=== PATIENT | female | born 1950 | race Caucasian/White ===

== ENCOUNTER → 2020-04-20 14:01 | Outpatient (CLI) | payer MEDICARE, SELFPAY ==
--- NOTE | ~2020-04-20 | MM_ITS ---
EXAMINATION: MM screening [facility] BI w sana HISTORY: Screening mammogram TECHNIQUE: Craniocaudal and mediolateral oblique 3-D tomosynthesis images were obtained and synthetic 2-D images were generated. CAD analysis was submitted and interpreted. COMPARISON: 04/10/2019, 02/12/2018, 08/10/2017, 11/13/2016 BREAST PARENCHYMAL COMPOSITION: There are scattered areas of fibroglandular density. FINDINGS: There is no evidence of suspicious mass, calcification, or architectural distortion to sugg est malignancy in either breast. There has been no suspicious interval change. IMPRESSION: 1. No mammographic evidence of malignancy. 2. Recommend routine screening mammography in one year. BI-RADS Category 1: Negative Reviewed, dictated and finalized at location A.
== END ==
PROVIDERS: PCP Family Medicine; Visit Provider Nurse Practitioner Family
DX: Z12.31 Encounter for screening mammogram for malignant neoplasm of breast (principal)
CPT/HCPCS: 77063; 77067

== ENCOUNTER → 2021-04-22 10:24 | Outpatient (CLI) | payer MEDICARE, SELFPAY ==
--- NOTE | ~2021-04-22 | MM_ITS ---
EXAMINATION: MM screening [facility] BI w sana HISTORY: Screening TECHNIQUE: Craniocaudal and mediolateral oblique 3-D tomosynthesis images were obtained and synthetic 2-D images were generated. CAD analysis was submitted and interpreted. COMPARISON: Comparison to multiple prior studies sequentially, with oldest reviewed study dated 11/13. BREAST PARENCHYMAL COMPOSITION: There are scattered areas of fibroglandular density. FINDINGS: There is no evidence of suspicious mass, calcification, or architectural distortion to sugg est malignancy in either breast. There has been no suspicious interval change. IMPRESSION: 1. No mammographic evidence of malignancy. 2. Recommend routine screening mammography in one year. BI-RADS Category 1: Negative Reviewed, dictated and finalized at location A.
== END ==
PROVIDERS: PCP Family Medicine; Visit Provider Nurse Practitioner Family
DX: Z12.31 Encounter for screening mammogram for malignant neoplasm of breast (principal)
CPT/HCPCS: 77063; 77067

== ENCOUNTER → 2021-06-09 13:28 | Outpatient (CLI) | payer MEDICARE, SELFPAY ==
--- NOTE | ~2021-06-09 | DEXA_ITS ---
Bone Density Report Name: Mary Catherine Age: 71 Sex: Female Ethnicity: White Date of : 1950 Indication: postmenopausal; screening for osteoporosis; parental hip fracture; height loss; Referring Provider: Negra Phillips Study: Bone densitometry was performed. Exam Date: June 09, 2021 Accession number: [id number] Bone Density: Region BMD T-score Z-score Classification AP Spine (L1-L4) 1.011 -0.3 1.9 Normal Femoral Neck (Left) 0.733 -1.0 0.9 Normal Total Hip (Left) 0.815 -1.0 0.6 Normal Femoral Neck (Right) 0.720 -1.2 0.8 Osteopenia Total Hip (Right) 0.873 -0.6 1.0 Normal Total Hip Mean 0.844 -0.8 0.8 Normal World Health Organization criteria for BMD impression classify patients as: Normal (T-score at or above -1.0), Osteopenia (T-score between -1.0 and -2.5), or Osteoporosis (T-score at or below -2.5). 10-year Fracture Risk(1): Major Osteoporotic Fracture 14% Hip Fracture 3.4% Reported Risk Factors: [place] (), Neck BMD=0.720, BMI=22.6, parental fracture (1) FRAX(R) Version 3.08. Fracture probability calculated for an untreated patient. Fracture probability may be lower if the patient has received treatment. Previous Exams: Region Exam Age BMD T-score BMD Change BMD Change Date g/cm2 vs Baseline vs Previous AP Spine(L1-L4) 06/09/2021 71 1.011 -0.3 -0.036* -0.036* 11/13/2016 66 1.047 0.0 Total Hip(Left) 06/09/2021 71 0.815 -1.0 -0.042* -0.011 04/10/2019 68 0.826 -0.9 -0.030* -0.030* 11/13/2016 66 0.857 -0.7 Total Hip(Right) 06/09/2021 71 0.873 -0.6 -0.028* 0.016 04/10/2019 68 0.856 -0.7 -0.045* -0.045* 11/13/2016 66 0.901 -0.3 *Denotes significance at 95% confidence level, LSC for AP Spine = 0.022 g/cm2, LSC for Total Hip = 0.027 g/cm2 Clinical Information Provided by Patient: Parent has had a hip fracture Has used the following medications: Vitamin D Patient maximum height was 64 Menopause Age: 57 Drinks caffeinated beverages Onset of menses at age 12 Number of children 2 Impression: The patient has low bone mass, based on the Right Femoral Neck T-score. The patient has an estimated ten-year risk of hip fracture of 3.4% and an estimated ten-year risk of major fracture of 14%, based on the WHO FRAX algorithm. The patient has risk factors, including: parental hip fracture. The BMD for the AP
== END ==
PROVIDERS: PCP Family Medicine; Visit Provider Nurse Practitioner Family
DX: Z78.0 Asymptomatic menopausal state (principal); M85.851 Other specified disorders of bone density and structure, right thigh
CPT/HCPCS: 77080

== ENCOUNTER 2021-07-04 00:24 | Day surgery (SDC) | payer MEDICARE, SELFPAY ==
[2021-06-23 15:01] VITALS: BMI 22.2
--- NOTE | 2021-07-03 10:14 | PM.HPGS ---
History of Present Illness History of Present Illness Consent: Risks, benefits, and alternatives have been discussed and questions answered. Patient agrees to proceed with procedure. Chief complaint: hx of colon polyps Narrative: Mary Catherine is a 71 year old female Who was referred for colon cancer screening. 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 Surgical History Surgical History History of hernia repair (~2013) History of tubal ligation Social History Social History Smoking status: Never smoker Alcohol intake: current Drinks per week: 4 Living arrangements: with family Spiritual care concerns: No Meds Home Medications and Allergies Home Medications Medication Instructions Recorded Confirmed Type melatonin 5 mg capsule 5 mg PO HS cap 03/22/20 07/04/21 History propranolol 120 mg capsule,24 120 mg PO DAILY #90 cap 11/12/20 07/04/21 Rx hr,extended release cholecalciferol (vitamin D3) 1,250 1,250 mcg PO WEEKLY #12 tablet 03/29/21 07/04/21 Rx mcg (50,000 unit) tablet Allergies Allergy/AdvReac Type Severity Reaction Status Date / Time No Known Allergies Allergy Unknown Verified 07/04/21 06:16 Exam Const: General: alert Orientation/consciousness: patient oriented x3 Resp: Auscultation: clear to auscultation bilaterally Cardio: Rhythm: regular rhythm GI: GI Palp: Yes Soft to palpation and No Tenderness to palpation present (GI) Neuro: General: patient oriented x3 Assessment and Plan Assessment and plan (1) Colon cancer screening: Code(s): Z12.11 - Encounter for screening for malignant neoplasm of colon Status: Acute Assessment and Plan: Colonoscopy with possible biopsy or polypectomy or cautery or injection of substances.
[2021-07-04 06:10] VITALS: BP 155/75; PULSE 63; RESP 18; TEMP 36.9; O2SAT 99; BMI 21.9
[2021-07-04] MEDS: LACTATED RINGERS 1,000 ML 150 ML IV CONT (06:34)
--- NOTE | 2021-07-04 06:39 | P.PNAN_ITS ---
Anes - Initial Pre Proc Eval Procedure: Operation Date: 07/04/21 07:30 Proposed Procedures p Screening Colonoscopy - Eugenio Gray MD Date/Time: 07/04/21 06:39 Surgeon: Eugenio Gray MD Pre Op Diagnosis: hx of colon polyps Patient Data Age: 71 Gender: F Height: 1.6 m Weight: 56.1 kg Last Vital Signs Temp 36.9 C 07/04/21 06:10 Pulse 63 07/04/21 06:10 Resp 18 07/04/21 06:10 BP 155/75 H 07/04/21 06:10 Pulse Ox 99 07/04/21 06:10 Allergies Allergy/AdvReac Type Severity Reaction Status Date / Time No Known Allergies Allergy Unknown Verified 07/04/21 06:16 Home Medications Medication Instructions Recorded Confirmed Type melatonin 5 mg capsule 5 mg PO HS cap 03/22/20 07/04/21 History propranolol 120 mg capsule,24 120 mg PO DAILY #90 cap 11/12/20 07/04/21 Rx hr,extended release cholecalciferol (vitamin D3) 1,250 1,250 mcg PO WEEKLY #12 tablet 03/29/21 07/04/21 Rx mcg (50,000 unit) tablet Patient hx anesthesia problems: none Family hx anesthesia problems: none Results Review: All pre-operative results and documents have been reviewed as part of the pre-operative evaluation. 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 Surgical History Surgical History History of hernia repair (~2013) History of tubal ligation Social History Social History Smoking status: Never smoker Alcohol intake: current Drinks per week: 4 Living arrangements: with family Spiritual care concerns: No Anes - Eval Final PreProcedure Day of Procedure 07/04/21 06:39 Patient weight: normal Heart: regular rate and rhythm Lungs: clear to auscultation Airway: Mallampati scale class II Neurological: alert and oriented Last oral intake: >/= 8 hours ASA classification: II Emergent: no Anesthetic plan: proceed Anesthesia type and monitoring: general GIVS and standard monitoring Results Review: All pre-operative results and documents have been reviewed as part of the pre-operative evaluation. Informed Consent: The patient's anesthetic plan and its attendant risks and benefits were discussed with the patient/family/POA. Questions were solicited and answers provided to the satisfaction of the patient/family/POA.
[2021-07-04 07:48] VITALS: BP 114/67; PULSE 66; RESP 18; O2SAT 97
[2021-07-04 07:58] VITALS: BP 123/74; PULSE 62; RESP 19; O2SAT 100
[2021-07-04 08:08] VITALS: BP 137/70; PULSE 60; RESP 18; O2SAT 100
== END 2021-07-04 08:18 | disposition home or self-care (01) ==
PROVIDERS: PCP Family Medicine; Visit Provider Internal Medicine Gastroenterology
PROC: 0DJD8ZZ Inspection of Lower Intestinal Tract, Via Natural or Artificial Opening Endoscopic (ICD-10-PCS; CPT 45378; principal; 2021-07-04 07:30)
DX: Z12.11 Encounter for screening for malignant neoplasm of colon (principal); Z86.010 Personal history of colon polyps; F41.9 Anxiety disorder, unspecified; G25.0 Essential tremor; I83.93 Asymptomatic varicose veins of bilateral lower extremities; K57.30 Diverticulosis of large intestine without perforation or abscess without bleeding
CPT/HCPCS: G0105; J2704; J7120

== ENCOUNTER → 2021-10-20 12:23 | Outpatient (CLI) | payer MEDICARE, SELFPAY ==
--- NOTE | ~2021-10-20 | XR_ITS ---
XR chest 2V DATE: 10/20/2021 12:48 INDICATION: Chest pain TECHNIQUE: 2 views COMPARISON: 04/02/2019 2 view chest FINDINGS: Normal heart size. There is aortic calcification and mild unfolding. No hilar or mediastina l enlargement. No pulmonary infiltrate or consolidation, pleural effusion or pulmonary vascular congestion or pneumo thorax. Included skeletal structures are unremarkable other than osteopenia, and degenerative spurrin g of the thoracic spine. IMPRESSION: No active cardiopulmonary disease Reviewed, dictated and finalized at location A.
== END ==
PROVIDERS: PCP Family Medicine; Visit Provider Nurse Practitioner
DX: R07.89 Other chest pain (principal)
CPT/HCPCS: 71046

== ENCOUNTER 2021-10-25 07:22 | Outpatient (CLI) | payer MEDICARE, SELFPAY ==
--- NOTE | ~2021-10-25 | US_ITS ---
EXAMINATION: US carotid duplex BI DATE: 10/25/2021 07:53 INDICATION: Dizziness and giddiness. TECHNIQUE: Grayscale, color Doppler, and pulsed Doppler images of the cervical carotid arteries were obtained. The degree of vessel stenosis is placed in one of the following categories: normal, <50%, 5 0-69%, >=70% but less than near-occlusion, near-occlusion, or total occlusion. Note that percent sten osis relative to normal distal artery lumen diameter is indirectly measured from velocity measurement s as described by Olegario, et al. Radiology 2003; 229:340-346. COMPARISON: None. FINDINGS: RIGHT: The right common carotid artery (CCA) peak systolic velocity (PSV) is 86 cm/s. The right internal car otid artery (ICA) PSV is 95 cm/s. The right ICA end-diastolic velocity (EDV) is 39 cm/s. The right IC A/CCA PSV ratio is 1.1. Grayscale and color Doppler images yield an estimate of <50% diameter reducti on from plaque in the ICA. There is antegrade flow in the right vertebral artery. LEFT: The left CCA PSV is 98 cm/s. The left ICA PSV is 98 cm/s. The left ICA EDV is 28 cm/s. The left ICA/C CA PSV ratio is 1.0. Grayscale and color Doppler images yield an estimate of <50% diameter reduction from plaque in the ICA. There is antegrade flow in the left vertebral artery. IMPRESSION: 1. <50% stenosis in the right internal carotid artery. 2. <50% stenosis in the left internal carotid artery. Reviewed, dictated and finalized at location A.
--- NOTE | 2021-10-25 08:27 | EST_ITS ---
Patient Info Name: Mary Catherine Age: 71 years : 1950 Gender: Female Ht: 64 in Wt: 130 lbs BSA: 1.64 m2 HR: 58 bpm BP: 184 / 77 mmHg Heart Rhythm: Sinus Rhythm Exam Date: 10/25/2021 8:37 AM Exam Location: [facility] Stress Patient Status: Outpatient Admit Date: 10/25/2021 Staff Ordering Physician: Ping Almazan NP Attending Provider: Ping Almazan NP Exercise Technologist: Heidi Wu CT Exercise Physician: Tyree Abel DO Exam Type: CA stress test treadmill Study Info Indications R42 - Dizziness and giddiness R07.9 - Chest pain, unspecified A treadmill exercise stress test was performed. Summary 1. 1. Negative [facility]no exercise stress test for ischemic ST changes by ECG criteria. However, patient achieved only 74% MPHR for age group which reduces sensitivity of the test. 2. 2. Good functional capacity, achieving 7.7 METs of workload. 3. 3. Baseline hypertension. 4. 4. Appropriate HR response to exercise. 5. 5. Appropriate HR recovery at 1 minute post exercise. 6. 6. No imaging with stress testing. 7. 7. Patient informed of the above results. Protocol: [facility] Stress ECG Details Stage: REST Duration (min): 2 min : 53 sec Speed (mph): 0.0 Grade (%): 0 HR (bpm): 58 SBP (mmHg): 184 DBP (mmHg): 77 METS: --- Stage: REST Duration (min): 7 min : 57 sec Speed (mph): 0.0 Grade (%): 0 HR (bpm): 63 SBP (mmHg): 184 DBP (mmHg): 77 METS: --- Stage: STAGE 1 Duration (min): 1 min : 0 sec Speed (mph): 1.7 Grade (%): 10 HR (bpm): 80 SBP (mmHg): 184 DBP (mmHg): 77 METS: --- Stage: STAGE 1 Duration (min): 2 min : 0 sec Speed (mph): 1.7 Grade (%): 10 HR (bpm): 82 SBP (mmHg): 184 DBP (mmHg): 77 METS: --- Stage: STAGE 1 Duration (min): 3 min : 0 sec Speed (mph): 1.7 Grade (%): 10 HR (bpm): 86 SBP (mmHg): 169 DBP (mmHg): 80 METS: --- Stage: STAGE 2 Duration (min): 1 min : 0 sec Speed (mph): 2.5 Grade (%): 12 HR (bpm): 100 SBP (mmHg): 169 DBP (mmHg): 80 METS: --- Stage: STAGE 2 Duration (min): 2 min : 0 sec Speed (mph): 2.5 Grade (%): 12 HR (bpm): 94 SBP (mmHg): 169 DBP (mmHg): 80 METS: --- Stage: STAGE 2 Duration (min): 3 min : 0 sec Speed (mph): 2.5 Grade (%): 12 HR (bpm): 94 SBP (mmHg): 169 DBP (mmHg): 80 METS: --- Stage: STAGE 3 Duration (min): 0 min : 24 sec Speed (mph): 3.4 Grade (%): 14 HR (bpm): 105 SBP (mmHg): 169 DBP (mmHg): 80 METS: --- Stage: RECOVERY Duration (min): 0 min : 35 sec Speed (mph): 0.0 Grade (%): 0 HR (bpm): 87 SBP (mmHg): 185 DBP (mmHg): 78 METS: --- Stage: RECOVERY Duration (min): 1 min : 35 sec Speed (mph): 0.0 Grade (%): 0 HR (bpm): 66 SBP (mmHg): 185 DBP (mmHg): 78 METS: --- Stage: RECOVERY Duration (min): 2 min : 3
== END 2021-10-25 07:23 | disposition home or self-care (01) ==
PROVIDERS: PCP Family Medicine; Visit Provider Nurse Practitioner
DX: R07.89 Other chest pain (principal); R42 Dizziness and giddiness; I65.23 Occlusion and stenosis of bilateral carotid arteries
CPT/HCPCS: 93017; 93880

== ENCOUNTER 2022-05-04 10:09 | Outpatient (RCR) | payer MEDICARE, SELFPAY ==
--- NOTE | 2022-05-04 11:21 | PTOPEVAL1 ---
Assessment and note entered by Reji James, PT Evaluation Information Assessment Status Evaluation Reported Pain Level Pain Score 0: Self Report Assessment PT Clinical Summary Patient is a 71 year old female coming into the clinic with a diagnosis of low back pain. Patient reports she currently has no pain or symptoms. When tested patient shows normal strength, poos tight hamstrings, EVAN piriformis, and hip flexors/ quads. Patient given home exercise program of stretches which she reports she has done before after other bouts of sciatica. Patient has a follow up session three weeks from now if no symptoms develop will discharge otherwise will work on symptoms observed. Plan of Care Interventions Electrical Stimulation,Gait Training,Hot Pack/Cold Pack,Manual Therapy,Mechanical Traction,Neuro Re- education,Patient/Caregiver Educati,Therapeutic Activities,Therapeutic Exercise,Ultrasound PT Services Indicated Yes Treatment Frequency and followup in 3 weeks unless symptoms come back Duration These treatments will address the objective and functional deficits as defined above. The patient will be advanced safely and appropriately in order for the patient to progress towards his/her prior level of function. Additional exercises will be introduced and as well as a comprehensive home exercise program upon discharge, if needed, ?to ensure carryover of functional gains achieved in the clinic. This treatment plan has been reviewed and agreement upon by the patient.
--- NOTE | 2022-06-02 11:33 | PTOPDC ---
Assessment and note entered by Fang Dubois, PT, DPT Evaluation Information Assessment Status Discharge - Pt Not Presen Diagnosis low back pain Subjective Information Pt called today and cancelled her scheduled re- evaluation. She states she is doing well and does not require any further therapy. Assessment PT Clinical Summary Mary completed her initial evaluation on and has been participating in a home exercise program since. She will be discharged at this time . If she requires additional therapy at a later date, she will need a new order. Plan of Care Treatment Frequency and to be discharged Duration
== END 2022-06-02 14:22 | disposition home or self-care (01) ==
LOC: ANHGOSHPT 10:09
PROVIDERS: PCP Family Medicine; Visit Provider Nurse Practitioner Family
DX: M54.50 Low back pain, unspecified (principal)
CPT/HCPCS: 97110; 97161

== ENCOUNTER 2022-06-02 10:23 | Outpatient (CLI) | payer MEDICARE, SELFPAY ==
[2022-06-02 18:19] LABS: Alanine Aminotransferase 17 U/L (6-35); Albumin Level 4.6 g/dL (3.5-5.1); Alkaline Phosphatase 106 U/L (38-126); Anion Gap 10 mmol/L (8-16); Aspartate Amino Transferase 26 U/L (14-36); Bilirubin,Total 0.7 mg/dL (0.2-1.3); Blood Urea Nitrogen 19 mg/dL (7-17); Calcium 9.2 mg/dL (8.4-10.2); Carbon Dioxide 26 mmol/L (22-30); Chloride 100 mmol/L (98-107); Cholesterol 189 mg/dL (0-200); Estimated Glomerular Filt Rate > 60; Glucose 106 mg/dL (65-110); HDL Direct 50 mg/dL; Potassium 4.7 mmol/L (3.4-5.0); Sodium 136 mmol/L (137-145); Triglycerides 129 mg/dL (<150)
[2022-06-02 18:31] LABS: LDL Cholesterol Direct 97 mg/dL
[2022-06-02 18:33] LABS: Basophils Absolute Auto 0.1 K/mm3 (0.0-0.1); Basophils Percent Auto 1.1 % (0.2-1.2); Eosinophils Absolute Auto 0.2 K/mm3 (0-0.3); Eosinophils Percent Auto 3.1 % (0-4.4); Hematocrit 39.7 % (37.0-47.0); Hemoglobin 13.1 g/dL (12.0-15.0); Immature Granulocyte Absolute 0.01 K/mm3 (0.00-0.031); Immature Granulocyte Percent A 0.2 % (0-0.5); Lymphocytes Percent Auto 28.3 % (18.3-44.2); Mean Corpuscular Hemoglobin 31.8 pg (26-34); Mean Corpuscular Volume 96.4 fl (80-100); Mean Platelet Volume 9.4 fl (7.4-10.4); Monocytes Absolute Auto 0.5 K/mm3 (0.1-0.6); Monocytes Percent Auto 8.2 % (2.6-8.5); Neutrophils Absolute Auto 3.8 K/mm3 (1.3-6.7); Neutrophils Percent Auto 59.1 % (45.5-73.1); Platelet Count Result 334 k/mm3 (150-375); Red Blood Count 4.12 M/mm3 (4.2-5.4); Red Cell Distribution Width 12.2 % (11.5-14.5); White Blood Count 6.4 K/mm3 (4.5-10.0)
== END 2022-06-02 10:24 | disposition home or self-care (01) ==
LOC: ANHGOSHLAB 10:26
PROVIDERS: PCP Family Medicine; Visit Provider Nurse Practitioner Family
DX: E55.9 Vitamin D deficiency, unspecified (principal); E78.5 Hyperlipidemia, unspecified
CPT/HCPCS: 36415; 80053; 80061; 82306; 84443; 85025

== ENCOUNTER → 2022-06-30 15:54 | Outpatient (CLI) | payer MEDICARE, SELFPAY ==
--- NOTE | ~2022-06-30 | MM_ITS ---
EXAMINATION: MM screening ivis BI w sana HISTORY: Screening TECHNIQUE: Craniocaudal and mediolateral oblique 3-D tomosynthesis images were obtained and synthetic 2-D images were generated. CAD analysis was submitted and interpreted. COMPARISON: Comparison to multiple prior studies sequentially, with oldest reviewed study dated 11/13. BREAST PARENCHYMAL COMPOSITION: There are scattered areas of fibroglandular density. FINDINGS: There is a new focal asymmetry inferiorly in the right breast on MLO view. The left breast is stable without evidence for malignancy. IMPRESSION: 1. New focal right breast asymmetry inferiorly and posteriorly on MLO view. 2. Additional mammographic views and possible breast ultrasound are recommended. BI-RADS Category 0: Incomplete: Needs additional imaging evaluation. Reviewed, dictated and finalized at location A. WORKER IMPRESSION: 1. New focal right breast asymmetry inferiorly and posteriorly on MLO view. 2. Additional mammographic views and possible breast ultrasound are recommended . BI-RADS Category 0: Incomplete: Needs additional imaging evaluation.
== END ==
PROVIDERS: PCP Family Medicine; Visit Provider Family Medicine
DX: Z12.31 Encounter for screening mammogram for malignant neoplasm of breast (principal); R92.8 Other abnormal and inconclusive findings on diagnostic imaging of breast
CPT/HCPCS: 77063; 77067

== ENCOUNTER → 2022-07-26 09:21 | Outpatient (CLI) | payer MEDICARE, SELFPAY ==
--- NOTE | ~2022-07-26 | MM_ITS ---
EXAMINATION: MM diagnostic ivis RT w sana HISTORY: Left breast asymmetry on screening mammogram TECHNIQUE: Additional 3-D tomosynthesis images of the left breast were performed and synthetic 2-D im ages were generated. CAD analysis was submitted and interpreted. COMPARISON: 06/30/2022, 04/22/2021,04/20/2020 FINDINGS: With spot compression, a 5 mm mass in the posterior third of the left breast has a stable a ppearance when compared to prior examinations. There has been no suspicious interval change. Also not ed is stable 4 mm mass of the upper breast at the 11:00 location. IMPRESSION: 1. No mammographic evidence of malignancy. 2. Recommend routine screening mammography in one year. BI-RADS Category 2: Benign finding(s). Reviewed, dictated and finalized at location A. [employer]
== END ==
PROVIDERS: PCP Family Medicine; Visit Provider Nurse Practitioner Family
DX: R92.8 Other abnormal and inconclusive findings on diagnostic imaging of breast (principal)
CPT/HCPCS: 77061; 77065; G0279

== ENCOUNTER → 2022-07-31 15:29 | Outpatient (CLI) | payer MEDICARE, SELFPAY ==
--- NOTE | ~2022-07-31 | XR_ITS ---
EXAMINATION: XR chest 2V DATE: 07/31/2022 15:43 INDICATION: Cough. TECHNIQUE: Frontal and lateral views of the chest were obtained. COMPARISON: Chest 2 views 10/20/2021 FINDINGS: There is mild scarring at the lung apices. No pleural effusion or pneumothorax. The heart s ize is normal. There is mild chronic anterior wedging of multiple midthoracic vertebral bodies. IMPRESSION: 1. Stable mild scarring at the lung apices. Reviewed, dictated and finalized at location A. [employer] PHP SOFTWARE DEVELOPER
== END ==
PROVIDERS: PCP Nurse Practitioner; Visit Provider Nurse Practitioner
DX: R05.9 Cough, unspecified (principal); J98.4 Other disorders of lung
CPT/HCPCS: 71046

== ENCOUNTER 2023-04-17 11:44 | Outpatient (CLI) | payer MEDICARE, SELFPAY ==
[2023-04-17 18:33] LABS: Basophils Absolute Auto 0.1 K/mm3 (0.0-0.1); Basophils Percent Auto 1.1 % (0.2-1.2); Eosinophils Absolute Auto 0.4 K/mm3 (0-0.3); Eosinophils Percent Auto 6.8 % (0-4.4); Hematocrit 39.5 % (37.0-47.0); Hemoglobin 12.4 g/dL (12.0-15.0); Immature Granulocyte Absolute 0.01 K/mm3 (0.00-0.031); Immature Granulocyte Percent A 0.2 % (0-0.5); Lymphocytes Percent Auto 31.6 % (18.3-44.2); Mean Corpuscular HGB Conc 31.4 g/dl (32-36); Mean Corpuscular Hemoglobin 32.4 pg (26-34); Mean Corpuscular Volume 103.1 fl (80-100); Mean Platelet Volume 10.4 fl (7.4-10.4); Monocytes Absolute Auto 0.5 K/mm3 (0.1-0.6); Monocytes Percent Auto 7.9 % (2.6-8.5); Neutrophils Absolute Auto 3.3 K/mm3 (1.3-6.7); Neutrophils Percent Auto 52.4 % (45.5-73.1); Platelet Count Result 310 k/mm3 (150-375); Red Blood Count 3.83 M/mm3 (4.2-5.4); Red Cell Distribution Width 12.3 % (11.5-14.5); White Blood Count 6.3 K/mm3 (4.5-10.0)
[2023-04-17 18:46] LABS: Alanine Aminotransferase 18 U/L (6-35); Albumin Level 4.2 g/dL (3.5-5.1); Alkaline Phosphatase 73 U/L (38-126); Anion Gap 5 mmol/L (8-16); Aspartate Amino Transferase 40 U/L (14-36); Bilirubin,Total 0.5 mg/dL (0.2-1.3); Blood Urea Nitrogen 16 mg/dL (7-17); Calcium 9.3 mg/dL (8.4-10.2); Carbon Dioxide 32 mmol/L (22-30); Chloride 102 mmol/L (98-107); Cholesterol 201 mg/dL (0-200); Estimated Glomerular Filt Rate > 60; Glucose 82 mg/dL (65-110); HDL Direct 59 mg/dL; Potassium 4.8 mmol/L (3.4-5.0); Sodium 139 mmol/L (137-145); Triglycerides 115 mg/dL (<150)
[2023-04-17 18:58] LABS: LDL Cholesterol Direct 101 mg/dL
[2023-04-20 07:47] LABS: Vitamin D 1,25 (OH)2 Total 44 pg/mL (18-72); Vitamin D2 1,25 (OH)2 <8 pg/mL; Vitamin D3 1,25 (OH)2 44 pg/mL
== END 2023-04-17 11:45 | disposition home or self-care (01) ==
PROVIDERS: PCP Family Medicine; Visit Provider Nurse Practitioner Family
DX: Z12.31 Encounter for screening mammogram for malignant neoplasm of breast (principal); Z78.0 Asymptomatic menopausal state; E55.9 Vitamin D deficiency, unspecified; E78.5 Hyperlipidemia, unspecified
CPT/HCPCS: 36415; 80053; 80061; 82652; 85025

== ENCOUNTER 2023-05-11 00:14 | Day surgery (SDC) | payer MEDICARE, SELFPAY ==
[2023-05-02 12:36] VITALS: BMI 21.3
[2023-05-11 10:36] VITALS: BP 124/72; PULSE 63; RESP 18; TEMP 36.2; O2SAT 100
[2023-05-11] MEDS: LACTATED RINGERS 1,000 ML 150 ML IV CONT (10:44)
--- NOTE | 2023-05-11 10:59 | WPDANESEPPF ---
Anes - Initial Pre Proc Eval Procedure: Operation Date: 05/11/23 11:15 Proposed Procedures p Esophagogastroduodenoscopy - Eugenio Gray MD Date/Time: 05/11/23 10:59 Surgeon: Eugenio Gray MD Pre Op Diagnosis: GERD, Chronic Cough Patient Data Age: 72 Gender: F Height: 1.63 m Weight: 55 kg Last Vital Signs Temp 97.2 F L 05/11/23 10:36 Pulse 63 05/11/23 10:36 Resp 18 05/11/23 10:36 BP 124/72 05/11/23 10:36 Pulse Ox 100 05/11/23 10:36 O2 Del Method Room Air 05/11/23 10:36 Allergies Allergy/AdvReac Type Severity Reaction Status Date / Time No Known Allergies Allergy Unknown Verified 05/11/23 10:35 Home Medications Medication Instructions Recorded Confirmed Type melatonin 5 mg capsule 5 mg PO HS 03/22/20 05/02/23 History propranolol 120 mg capsule,24 120 mg PO DAILY #90 caps 09/20/22 05/02/23 Rx hr,extended release inhalational spacing device #1 ea 12/06/22 12/06/22 Rx albuterol sulfate 90 mcg/actuation 1 puff inhalation Q4H PRN 02/13/23 05/02/23 Rx aerosol inhaler (ProAir HFA) bronchospasm #8.5 grams fluticasone propionate 50 1 spray intranasal DAILY PRN Sinus 04/02/23 05/02/23 History mcg/actuation nasal Symptoms spray,suspension (Flonase Allergy Relief) multivitamin (Daily Multi-Vitamin 1 tablet PO DAILY 04/02/23 05/02/23 History tablet) omeprazole 40 mg capsule,delayed 40 mg PO DAILY #90 caps 04/02/23 05/02/23 Rx release Patient hx anesthesia problems: none Family hx anesthesia problems: none Results Review: All pre-operative results and documents have been reviewed as part of the pre-operative evaluation. [facility] Past Medical History Medical History Anxiety Essential tremor Hip pain, bilateral Insomnia Osteopenia Varicose veins of both lower extremities without ulcer or inflammation Surgical History Surgical History History of hernia repair (~2013) History of tubal ligation Family History Family History Sibling Acute myocardial infarction Other Heart disease Father No problems noted. Mother No problems noted. Social History Social History Smoking status: Never smoker Alcohol intake: current Drinks per week: 4 Alcohol use details: wine Substance use: never Substance use type: does not use Lack of Transportation: No Lack of Food: Never True Current Housing: I Have Housing Concerned About Future Housing: No Difficulty Paying Gas/Electric Bills: No Difficulty Paying for Meds: No Currently Unemployed: No Education: Bachelor's Degree Difficulty w/ Childcare or Family Care: No Living arrangements: with family Occupation/Education: retired Gender identity (if verbalized by the patient): Female Sexual Orientation (if Verbalized by the Patient): Straight or Heterosexual Spiritual care concerns: No Agree to blood products: Yes Anes - Eval Final PreProcedure Day of Procedure 05/11/23 10:59 Patient weight: normal Heart: regular rate and rhythm Lungs: clear to auscultation Airway: Mallampati scale class II Neurological: alert and oriented Last oral intake: >/= 8 hours ASA classification: II Emergent: no Anesthetic plan: proceed Anesthesia type and monitoring: general GIVS and standard monitoring Results Review: All pre-operative results and documents have been reviewed as part of the pre-operative evaluation. Informed Consent: The patient's anesthetic plan and its attendant risks and benefits were discussed with the patient/family/POA. Questions were solicited and answers provided to the satisfaction of the patient/family/POA.
--- NOTE | 2023-05-11 11:15 | PM.HPGS ---
History of Present Illness History of Present Illness Consent: Risks, benefits, and alternatives have been discussed and questions answered. Patient agrees to proceed with procedure. Chief complaint: GERD, Chronic Cough Narrative: Mary Catherine is a 72 year old female Who has been bothered by a chronic and persistent cough since July of this year. She has seen a banquet waiter/waitress and they recommended inhalers but she could not afford them. She has already been taking albuterol before this began. She denies regurgitation. She does not have more episodes at night than during the day. She was started on omeprazole which helped with heartburn that she had had but not at all with the .cough Review of Systems Review of Systems: All systems reviewed & are unremarkable except as noted in HPI and below PMFSH Past Medical History Medical History Anxiety Essential tremor Hip pain, bilateral Insomnia Osteopenia Varicose veins of both lower extremities without ulcer or inflammation Surgical History Surgical History History of hernia repair (~2013) History of tubal ligation Family History Family History Sibling Acute myocardial infarction Other Heart disease Father No problems noted. Mother No problems noted. Social History Social History Smoking status: Never smoker Alcohol intake: current Drinks per week: 4 Alcohol use details: wine Substance use: never Substance use type: does not use Lack of Transportation: No Lack of Food: Never True Current Housing: I Have Housing Concerned About Future Housing: No Difficulty Paying Gas/Electric Bills: No Difficulty Paying for Meds: No Currently Unemployed: No Education: Bachelor's Degree Difficulty w/ Childcare or Family Care: No Living arrangements: with family Occupation/Education: retired Gender identity (if verbalized by the patient): Female Sexual Orientation (if Verbalized by the Patient): Straight or Heterosexual Spiritual care concerns: No Agree to blood products: Yes Meds Home Medications and Allergies Home Medications Medication Instructions Recorded Confirmed Type melatonin 5 mg capsule 5 mg PO HS 03/22/20 05/02/23 History propranolol 120 mg capsule,24 120 mg PO DAILY #90 caps 09/20/22 05/02/23 Rx hr,extended release inhalational spacing device #1 ea 12/06/22 12/06/22 Rx albuterol sulfate 90 mcg/actuation 1 puff inhalation Q4H PRN 02/13/23 05/02/23 Rx aerosol inhaler (ProAir HFA) bronchospasm #8.5 grams fluticasone propionate 50 1 spray intranasal DAILY PRN Sinus 04/02/23 05/02/23 History mcg/actuation nasal Symptoms spray,suspension (Flonase Allergy Relief) multivitamin (Daily Multi-Vitamin 1 tablet PO DAILY 04/02/23 05/02/23 History tablet) omeprazole 40 mg capsule,delayed 40 mg PO DAILY #90 caps 04/02/23 05/02/23 Rx release Allergies Allergy/AdvReac Type Severity Reaction Status Date / Time No Known Allergies Allergy Unknown Verified 05/11/23 10:35 Vital Signs Vital Signs - 24 hr 05/11/23 10:36 Temperature 36.2 C L Pulse Rate 63 Respiratory Rate 18 Blood Pressure 124/72 Pulse Oximetry 100 Oxygen Delivery Room Air Exam Const: General: alert Orientation/consciousness: patient oriented x3 Resp: Auscultation: clear to auscultation bilaterally Cardio: Rhythm: regular rhythm GI: GI Palp: Yes Soft to palpation and No Tenderness to palpation present (GI) Neuro: General: patient oriented x3 Assessment and Plan Assessment and plan (1) Gastroesophageal reflux disease: Qualifiers: Esophagitis presence: esophagitis presence not specified Qualified Code(s): K21.9 - Gastro-esophageal reflux disease wit
[2023-05-11 11:39] VITALS: BP 113/59; PULSE 70; RESP 21; O2SAT 100
[2023-05-11 11:49] VITALS: BP 123/75; PULSE 61; RESP 17; O2SAT 100
[2023-05-11 11:59] VITALS: BP 127/70; PULSE 60; RESP 17; O2SAT 100
== END 2023-05-11 12:00 | disposition home or self-care (01) ==
PROVIDERS: PCP Family Medicine; Visit Provider Internal Medicine Gastroenterology
PROC: 0DJ08ZZ Inspection of Upper Intestinal Tract, Via Natural or Artificial Opening Endoscopic (ICD-10-PCS; CPT 43235; principal; 2023-05-11 11:15)
DX: K21.9 Gastro-esophageal reflux disease without esophagitis (principal); Z79.51 Long term (current) use of inhaled steroids
CPT/HCPCS: 43239; 88305; J2704; J7120

== ENCOUNTER 2023-06-23 08:03 | Emergency (ER) | payer MEDICARE, SELFPAY ==
[2023-06-23 08:18] VITALS: BP 114/67; PULSE 84; RESP 16; TEMP 37.1; O2SAT 100
--- NOTE | 2023-06-23 08:19 | ED.URI ---
HPI - URI/Sore Throat General Chief Complaint: Upper Respiratory Infection Stated Complaint: Sinus Infection Time Seen by Provider: 06/23/23 08:20 Source: patient, RN notes reviewed and old records reviewed Mode of arrival: ambulatory Limitations: no limitations History of Present Illness HPI Narrative: 73-year-old female presents [facility] complaints of body aches, fevers 100-101F, runny nose, loose cough with some fatigue since . patient reports she has had a cough for some time and does have her inhaler at home that she has been using. patient reports she went to lunch with a friend the other day and her friend is also ill. patient has taken Robitussin DM some Elli ,Tylenol, Flonase, and has used the albuterol inhaler for her symptoms. Patient denies any shortness of breath no tachypnea noted, respirations even and nonlabored SaO2 100% MD elicited complaint: fever, cough, rhinorrhea, nasal congestion, sinus pain and other ( fatigue and body aches) Onset (ago): day(s) (2) Pain scale (0-10): 7 Description of mucous: clear Treatments prior to arrival: acetaminophen and other ( Flonase, Robitussin DM, albuterol inhaler, Elli) Related Data Home Medications Medication Instructions Recorded Confirmed melatonin 5 mg capsule 5 mg PO HS 03/22/20 05/02/23 multivitamin (Daily Multi-Vitamin 1 tablet PO DAILY 04/02/23 05/02/23 tablet) finasteride 5 mg tablet mg 06/23/23 spironolactone 100 mg tablet mg 06/23/23 Allergies Allergy/AdvReac Type Severity Reaction Status Date / Time No Known Allergies Allergy Unknown Verified 05/11/23 10:35 Review of Systems Review of Systems: CONSTITUTIONAL: Reports malaise, chills, sweats, and fever. EYES: Denies visual changes, redness, or discharge. ENT: Reports rhinorrhea, congestion, sinus pain, no otalgia and no sore throat. CARDIOVASCULAR: Denies chest pain, palpitations, or edema. RESPIRATORY: Reports cough.? Denies dyspnea. GASTROINTESTINAL: Denies abdominal pain, nausea, vomiting, diarrhea SKIN: Denies rash or itching. MUSCULOSKELETAL: Reports myalgia. NEUROLOGIC: Denies headache. All systems reviewed & are unremarkable except as noted in HPI and below PMFSH Past Medical History Medical History Anxiety Essential tremor Hip pain, bilateral Insomnia Osteopenia Varicose veins of both lower extremities without ulcer or inflammation Surgical History Surgical History History of hernia repair (~2013) History of tubal ligation Family History Family History Sibling Acute myocardial infarction Other Heart disease Father No problems noted. Mother No problems noted. Social History Social History Smoking status: Never smoker Alcohol intake: current Drinks per week: 4 Alcohol use details: wine Substance use: never Substance use type: does not use Lack of Transportation: No Lack of Food: Never True Current Housing: I Have Housing Concerned About Future Housing: No Difficulty Paying Gas/Electric Bills: No Difficulty Paying for Meds: No Currently Unemployed: No Education: Bachelor's Degree Difficulty w/ Childcare or Family Care: No Living arrangements: with family Occupation/Education: retired Gender identity (if verbalized by the patient): Female Sexual Orientation (if Verbalized by the Patient): Straight or Heterosexual Spiritual care concerns: No Agree to blood products: Yes Comments At time of signature, agree with nursing past medical, surgical, social and family history. There is no relevant family history pertinent to the presenting complaint Exam Narrative: GENERAL: Well-appearing, well-nourished, and in no acute distress. HEAD:
== END 2023-06-23 08:53 | disposition home or self-care (01) ==
PROVIDERS: Emergency Provider Registered Nurse; PCP Family Medicine
DX: U07.1 COVID-19 (principal); M85.80 Other specified disorders of bone density and structure, unspecified site
CPT/HCPCS: 87426; 87804; 99213; C9803; G0463

== ENCOUNTER 2023-06-29 18:55 | Emergency (ER) | payer MEDICARE, SELFPAY ==
--- NOTE | 2023-06-29 18:58 | ED.URI ---
HPI - URI/Sore Throat General Chief Complaint: Upper Respiratory Infection Stated Complaint: Covid, shortness of breath/spasms Time Seen by Provider: 06/29/23 19:25 Source: patient and RN notes reviewed Mode of arrival: ambulatory Limitations: no limitations History of Present Illness HPI Narrative: 73-year-old female presents with concern for bronchospasms. She reports she was diagnosed with COVID 6 days ago, at that time she had had symptoms for 2 days. She reports she was given a steroid pack and finished that. She called her doctor today and was prescribed cough medicine with codeine. She reports she is having bronchospasms that make her feel like she can breathe despite using her albuterol inhaler every 4 hours. She reports she has only had the cough medicine for short time today so she is not sure if that has made a difference. She reports she has had a chronic cough for over a year that has worsened with COVID. She reports she has had her chronic cough worked up without any findings. MD elicited complaint: cough Related Data Home Medications Medication Instructions Recorded Confirmed melatonin 5 mg capsule 5 mg PO HS 03/22/20 06/29/23 multivitamin (Daily Multi-Vitamin 1 tablet PO DAILY 04/02/23 06/29/23 tablet) finasteride 5 mg tablet 5 mg DIRECTED 06/23/23 06/29/23 spironolactone 100 mg tablet 100 mg DIRECTED 06/23/23 06/29/23 albuterol sulfate 90 mcg/actuation inhalation 06/29/23 aerosol inhaler Allergies Allergy/AdvReac Type Severity Reaction Status Date / Time No Known Allergies Allergy Unknown Verified 05/11/23 10:35 Review of Systems Review of Systems: CONSTITUTIONAL: Denies malaise, chills, sweats, or fever. EYES: Denies visual changes, redness, or discharge. ENT: Denies rhinorrhea, congestion CARDIOVASCULAR: Denies chest pain, palpitations, or edema. RESPIRATORY: Reports cough, bronchospasm with dyspnea. All systems reviewed & are unremarkable except as noted in HPI and below PMFSH Past Medical History Medical History Anxiety Essential tremor Hip pain, bilateral Insomnia Osteopenia Varicose veins of both lower extremities without ulcer or inflammation Surgical History Surgical History History of hernia repair (~2013) History of tubal ligation Family History Family History Sibling Acute myocardial infarction Other Heart disease Father No problems noted. Mother No problems noted. Social History Social History Smoking status: Never smoker Alcohol intake: current Drinks per week: 4 Alcohol use details: wine Substance use: never Substance use type: does not use Lack of Transportation: No Lack of Food: Never True Current Housing: I Have Housing Concerned About Future Housing: No Difficulty Paying Gas/Electric Bills: No Difficulty Paying for Meds: No Currently Unemployed: No Education: Bachelor's Degree Difficulty w/ Childcare or Family Care: No Living arrangements: with family Occupation/Education: retired Gender identity (if verbalized by the patient): Female Sexual Orientation (if Verbalized by the Patient): Straight or Heterosexual Spiritual care concerns: No Agree to blood products: Yes Comments At time of signature, agree with nursing past medical, surgical, social and family history. There is no relevant family history pertinent to the presenting complaint Exam Narrative: GENERAL: Nontoxic-appearing and in no acute distress. HEAD: Normocephalic EYES: PERRLA, conjunctivae clear ENT: Nares clear. Mucous membranes moist. TM pearly mulligan with sharp light reflex bilaterally; no tragal tenderness. Oropharynx not erythematous without lesions. Tonsils not enlarged and w
[2023-06-29 19:06] VITALS: BP 121/106; PULSE 78; RESP 16; TEMP 36.8; O2SAT 99
[2023-06-29] MEDS: ALBUTEROL SULFATE NEB 2.5 MG/3 ML INH INHALATION (19:29)
[2023-06-29 19:33] VITALS: PULSE 76; RESP 18; O2SAT 99
[2023-06-29 19:48] VITALS: PULSE 77; RESP 18; O2SAT 95
== END 2023-06-29 19:53 | disposition home or self-care (01) ==
PROVIDERS: Emergency Provider Nurse Practitioner; PCP Family Medicine
DX: J98.01 Acute bronchospasm (principal); Z79.899 Other long term (current) drug therapy
CPT/HCPCS: 94640; 99213; G0463

== ENCOUNTER → 2023-09-06 11:31 | Outpatient (CLI) | payer MEDICARE, SELFPAY ==
--- NOTE | ~2023-09-06 | DEXA_ITS ---
Bone Density Report Name: NATHAN STEIN Age: 73 Sex: Female Ethnicity: White Date of : 1950 Indication: postmenopausal; screening for osteoporosis; parental hip fracture; height loss; Referring Provider: RIP VALDEZ Study: Bone densitometry was performed. Exam Date: September 06, 2023 Accession number: [id number] Bone Density: Region BMD T-score Z-score Classification AP Spine (L1-L4) 0.994 -0.5 1.9 Normal Femoral Neck (Left) 0.646 -1.8 0.2 Osteopenia Total Hip (Left) 0.789 -1.3 0.5 Osteopenia Femoral Neck (Right) 0.687 -1.5 0.6 Osteopenia Total Hip (Right) 0.827 -0.9 0.8 Normal Total Hip Mean 0.808 -1.1 0.7 Osteopenia World Health Organization criteria for BMD impression classify patients as: Normal (T-score at or above -1.0), Osteopenia (T-score between -1.0 and -2.5), or Osteoporosis (T-score at or below -2.5). 10-year Fracture Risk(1): Major Osteoporotic Fracture 19% Hip Fracture 9.8% Reported Risk Factors: [place] (), Neck BMD=0.646, BMI=21.1, parental fracture (1) FRAX(R) Version 3.08. Fracture probability calculated for an untreated patient. Fracture probability may be lower if the patient has received treatment. Previous Exams: Region Exam Age BMD T-score BMD Change BMD Change Date g/cm2 vs Baseline vs Previous AP Spine(L1-L4) 09/06/2023 73 0.994 -0.5 -0.053* -0.017 06/09/2021 71 1.011 -0.3 -0.036* -0.036* 11/13/2016 66 1.047 0.0 Total Hip(Left) 09/06/2023 73 0.789 -1.3 -0.067* -0.026 06/09/2021 71 0.815 -1.0 -0.042* -0.011 04/10/2019 68 0.826 -0.9 -0.030* -0.030* 11/13/2016 66 0.857 -0.7 Total Hip(Right) 09/06/2023 73 0.827 -0.9 -0.074* -0.046* 06/09/2021 71 0.873 -0.6 -0.028* 0.016 04/10/2019 68 0.856 -0.7 -0.045* -0.045* 11/13/2016 66 0.901 -0.3 *Denotes significance at 95% confidence level, LSC for AP Spine = 0.022 g/cm2, LSC for Total Hip = 0.027 g/cm2 Clinical Information Provided by Patient: Parent has had a hip fracture Has used the following medications: Vitamin D, MTV Patient maximum height was 64 Menopause Age: 57 Drinks caffeinated beverages Onset of menses at age 12 Number of children 2 Impression: The patient has low bone mass, based on the Left Femoral Neck T-score. The patient has an estimated ten
--- NOTE | ~2023-09-06 | MM_ITS ---
EXAMINATION: MM screening ivis BI w sana HISTORY: Screening mammogram TECHNIQUE: Craniocaudal and mediolateral oblique 3-D tomosynthesis images were obtained and synthetic 2-D images were generated. CAD analysis was submitted and interpreted. COMPARISON: 07/26/2022, 06/30/2022, 04/22/2021 BREAST PARENCHYMAL COMPOSITION: There are scattered areas of fibroglandular density. FINDINGS: A stable mass is noted in the posterior third of the outer right breast. No suspicious mass , calcification, or architectural distortion are identified in either breast to suggest malignancy. T here has been no suspicious interval change. IMPRESSION: 1. No mammographic evidence of malignancy. 2. Recommend routine screening mammography in one year. BI-RADS Category 2: Benign finding(s). Reviewed, dictated and finalized at location A. ECT TECHNICIAN
== END ==
PROVIDERS: PCP Family Medicine; Visit Provider Nurse Practitioner Family
DX: Z12.31 Encounter for screening mammogram for malignant neoplasm of breast (principal); Z78.0 Asymptomatic menopausal state; M85.89 Other specified disorders of bone density and structure, multiple sites
CPT/HCPCS: 77063; 77067; 77080

== ENCOUNTER 2023-10-24 10:48 | Outpatient (CLI) | payer MEDICARE, SELFPAY ==
--- NOTE | ~2023-10-24 | CT_ITS ---
EXAMINATION: CT sinus wo con DATE: 10/24/2023 11:02 INDICATION: Bilateral chronic rhinitis for 6 months TECHNIQUE: Computed tomography (CT) of the paranasal sinuses was performed without contrast. Iterativ e reconstruction technique was employed. Exam dose: 425.50 mGy-cm total exam DLP. COMPARISON: None FINDINGS: There is prominent leftward bowing of the nasal septum. The right maxillary ostium and proximal portion of the right infundibulum are occluded. The left ostiomeatal unit is patent. There is nearly complete opacification of the right maxillary sinus. No right maxillary sinus expansi on wall destruction is noted. The left ostiomeatal unit is normal. The paranasal sinuses otherwise are normally developed and aerated. The mastoid air cells are well-developed and aerated bilaterally. IMPRESSION: Nearly complete opacification right maxillary sinus. Opacified right maxillary ostium an d proximal infundibulum Leftward deviation of nasal septum Reviewed, dictated and finalized at Location [facility]. Reviewed, dictated and finalized at location B. IMPRESSION: Nearly complete opacification right maxillary sinus. Opacified rig ht maxillary ostium and proximal infundibulum Leftward deviation of nasal septum
== END 2023-10-24 10:49 ==
LOC: GOSHIMG 10:49
PROVIDERS: PCP Family Medicine; Visit Provider Otolaryngology
DX: K21.9 Gastro-esophageal reflux disease without esophagitis (principal); J32.2 Chronic ethmoidal sinusitis; J32.0 Chronic maxillary sinusitis; J31.0 Chronic rhinitis; J34.2 Deviated nasal septum
CPT/HCPCS: 70486

== ENCOUNTER 2024-01-07 13:44 | Emergency (ER) | payer MEDICARE, SELFPAY ==
[2024-01-07 13:55] VITALS: BP 122/74; PULSE 65; RESP 18; TEMP 36.5; O2SAT 100
--- NOTE | 2024-01-07 14:04 | ED.URI ---
HPI - URI/Sore Throat General Chief Complaint: Upper Respiratory Infection Stated Complaint: Strep Symptoms Time Seen by Provider: 01/07/24 14:00 Source: patient and RN notes reviewed Mode of arrival: ambulatory Limitations: no limitations History of Present Illness HPI Narrative: Patient presents today with a 3 day history of sore throat, headache, rhinorrhea, cough. Denies fever, congestion. She currently rates her pain 8/10, which increases with talking and swallowing. She has been using ibuprofen and Chloraseptic without relief. Denies known sick contacts. Related Data Home Medications Medication Instructions Recorded Confirmed melatonin 5 mg capsule 5 mg PO HS 03/22/20 01/07/24 multivitamin (Daily Multi-Vitamin 1 tablet PO DAILY 04/02/23 01/07/24 tablet) finasteride 5 mg tablet 5 mg PO DIRECTED HAIR LOSS 06/23/23 01/07/24 spironolactone 100 mg tablet 100 mg PO DIRECTED HAIR LOSS 06/23/23 01/07/24 propranolol 120 mg capsule,24 120 mg PO DAILY TREMORS 12/27/23 01/07/24 hr,extended release Allergies Allergy/AdvReac Type Severity Reaction Status Date / Time No Known Allergies Allergy Unknown Verified 12/27/23 13:22 Review of Systems Review of Systems: CONSTITUTIONAL: Denies body aches, fever, chills, or sweats. EYES: Denies visual changes, redness, or discharge. ENT: Denies congestion, or otalgia.+ rhinorrhea, sore throat CARDIOVASCULAR: Denies chest pain, palpitations, or edema. RESPIRATORY: Denies dyspnea.+ off GASTROINTESTINAL: Denies abdominal pain, nausea, vomiting, or diarrhea. GENITOURINARY: Denies dysuria or hematuria. SKIN: Denies rash, itching, or wounds. MUSCULOSKELETAL: Denies back pain, joint pain, or myalgia. NEUROLOGIC: Denies numbness, tingling, or weakness.+ headache PSYCH: Denies depression or anxiety. [facility] Past Medical History Medical History Anxiety Essential tremor Hip pain, bilateral Insomnia Osteopenia Varicose veins of both lower extremities without ulcer or inflammation Surgical History Surgical History History of hernia repair (~2013) History of tubal ligation Family History Family History Sibling Acute myocardial infarction Other Heart disease Father No problems noted. Mother No problems noted. Social History Social History Social History: Caffeine- coffee daily Smoking status: Never smoker Alcohol intake: current Drinks per week: 4 Alcohol use details: wine Substance use: never Substance use type: does not use Lack of Transportation: No Lack of Food: Never True Current Housing: I Have Housing Concerned About Future Housing: No Difficulty Paying Gas/Electric Bills: No Difficulty Paying for Meds: No Currently Unemployed: No Education: Bachelor's Degree Difficulty w/ Childcare or Family Care: No Living arrangements: with family Occupation/Education: retired Gender identity (if verbalized by the patient): Female Sexual Orientation (if Verbalized by the Patient): Straight or Heterosexual Spiritual care concerns: No Agree to blood products: Yes Comments At time of signature, I have reviewed and agree with nursing past medical, surgical, social and family history unless otherwise noted. Please see nursing chart for further information. There is no relevant family history pertinent to the presenting complaint Exam Narrative: GENERAL: Well-appearing, well-nourished, and in no acute distress. HEAD: Normocephalic, atraumatic. EYES: EOMI. No redness or drainage. Conjunctivae normal. ENT: Mucous membranes pink and moist. Nares clear. No rhinorrhea. TMs normal bilaterally. Throat mildly erythematous without edema or exudate.
== END 2024-01-07 14:15 | disposition home or self-care (01) ==
PROVIDERS: Emergency Provider Nurse Practitioner; PCP Family Medicine
DX: J06.9 Acute upper respiratory infection, unspecified (principal); M85.80 Other specified disorders of bone density and structure, unspecified site
CPT/HCPCS: 87081; 87880; 99213; G0463

== ENCOUNTER 2024-01-08 00:18 | Day surgery (SDC) | payer MEDICARE, SELFPAY ==
--- NOTE | 2023-12-27 13:32 | PC.NURSE ---
Report to the Outpatient Waiting Room, entrance under the green pavilion located off [facility], at time _1:15 PM on date __01/08/24____. Planned Procedure Time: _3:15PM . Time changes happen often and if your time is changed the preop area will call you the afternoon before. - You and your visitor will be asked to self-screen and do not enter if you have any COVID symptoms. - A mask is optional within the hospital at this time. Patients may have clear liquids (water, carbonated beverages, clear teas, apple juice) until 3 hours prior to surgery( 12:15PM) with a maximum of 20 ounces. - No food from midnight until time of surgery - Infants may have breast milk until 4 hours before surgery, infant formula 6 hours prior to surgery. - Children will be allowed to drink immediately following surgery. If applicable, please bring a bottle or sippy cup to assist with drinking. Juice, water, soda, and popsicles are readily available. For infants on formula, please bring formula the day of surgery. Pacifiers are allowed. Take the following medications with a SIP of water the morning of surgery: __PROPRANOLOL DO NOT STOP ANY OF YOUR OTHER PRESCRIPTION MEDICATIONS PRIOR TO SURGERY ?EXCEPT THE FOLLOWING Medications to discontinue per physician ____ALL VITAMINS AND SUPPLEMENTS 3 DAYS PRE OP .LAST DOSE 01/04/24 Please no make-up, nail kenyan, hairspray, perfume, deodorant, or body powder the day of surgery. No jewelry (including any body piercings) or valuables the day of surgery, leave them at home. Please take a shower or bath the night before, or the morning of, surgery with an antibacterial soap. Wear comfortable, loose fitting clothing. Children are encouraged to wear pajamas. - Jewelry must be removed prior to entering the operating room. Rings and piercings that are not removed may be cut off. - The hospital will not accept responsibility for valuables. - Please leave all valuables, including medications, at home the day of surgery. If you are going home after surgery, a licensed haul driver must drive you home. - NO public transportation without another adult if you receive anesthesia. - We recommend that an adult stay with you for 24 hours following discharge. - We also recommend that you do not drive, make important decision, drink alcoholic beverages, or take any drugs that were not prescribed by your health care provider for at least 24 hours after your discharge time. Follow any additional instructions given to you from your surgeon. If you or anyone in your household have experienced Covid symptoms in the past week, please notify your surgeon or the nurse liaison at the phone number below for possible testing. Telephone instructions given to __PATIENT and asked if any additional questions and then verbalized understanding. Patient advised to call surgeon office or pre surgery nurse liaison [phone] if any additional questions.
[2023-12-27 13:39] VITALS: BMI 19.9
[2024-01-08] VITALS (8 sets, daily range): BP systolic 113–124; BP diastolic 50–69; PULSE 61–75; RESP 14–18; TEMP 36.3–36.9; O2SAT 94–100
--- NOTE | 2024-01-08 07:57 | PM.IMHP ---
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 Mother No problems noted. Social History Social History Social History: Caffeine- coffee daily Smoking status: Never smoker Alcohol intake: current Drinks per week: 4 Alcohol use details: wine Substance use: never Substance use type: does not use Lack of Transportation: No Lack of Food: Never True Current Housing: I Have Housing Concerned About Future Housing: No Difficulty Paying Gas/Electric Bills: No Difficulty Paying for Meds: No Currently Unemployed: No Education: Bachelor's Degree Difficulty w/ Childcare or Family Care: No Living arrangements: with family Occupation/Education: retired Gender identity (if verbalized by the patient): Female Sexual Orientation (if Verbalized by the Patient): Straight or Heterosexual Spiritual care concerns: No Agree to blood products: Yes Meds Home Medications and Allergies Home Medications Medication Instructions Recorded Confirmed Type melatonin 5 mg capsule 5 mg PO HS 03/22/20 01/07/24 History multivitamin (Daily Multi-Vitamin 1 tablet PO DAILY 04/02/23 01/07/24 History tablet) finasteride 5 mg tablet 5 mg PO DIRECTED HAIR LOSS 06/23/23 01/07/24 History spironolactone 100 mg tablet 100 mg PO DIRECTED HAIR LOSS 06/23/23 01/07/24 History pantoprazole 40 mg tablet,delayed 40 mg PO BID #180 tabs 12/20/23 01/07/24 Rx release propranolol 120 mg capsule,24 120 mg PO DAILY TREMORS 12/27/23 01/07/24 History hr,extended release Allergies Allergy/AdvReac Type Severity Reaction Status Date / Time No Known Allergies Allergy Unknown Verified 12/27/23 13:22 Exam Narrative: fungal sinusitis Assessment and Plan Assessment and plan (1) Allergic fungal sinusitis: Code(s): J30.89 - Other allergic rhinitis; B49 - Unspecified mycosis Status: Acute Assessment and Plan: plan OR for right-sided endoscopic maxillary antrostomy with tissue removal . Risks discussed including bleeding infection damage to any structures need further procedures change in vision total blindness CSF leak brain brain damage septal perforation failure to resolve symptoms recurrence of fungal balls need for further procedures time-out for time off school inherent risk of narcotic use damage any structures the clavicles by myself damage any structures induction remains of anesthesia including vocal cord paralysis. Postoperative epistaxis. Postoperative action. Patient voiced understanding of these risks and agreed. (2) Opacified maxillary sinus: Code(s): R93.0 - Abnormal findings on diagnostic imaging of skull and head, not elsewhere classified Status: Acute
--- NOTE | 2024-01-08 07:58 | WPDHPUPDATE1 ---
History and Physical Update Update Date/Time: 01/08/24 07:58 History and Physical has been reviewed, including an updated exam of the patient. There are NO changes in the patient's condition. Risks, benefits, and alternatives have been discussed and questions answered. Patient agrees to proceed with procedure.
--- NOTE | 2024-01-08 13:20 | WPDANESEPPF ---
Anes - Initial Pre Proc Eval Procedure: Operation Date: 01/08/24 15:15 Proposed Procedures p Right Sided Endoscopic Maxillary Antrostomy with Tissue Removal - Indio Saeed MD Date/Time: 01/08/24 13:20 Surgeon: Indio Saeed MD Pre Op Diagnosis: Allergic Fungal Sinsusitis Patient Data Age: 73 Gender: F Height: 1.63 m Weight: 52.65 kg Allergies Allergy/AdvReac Type Severity Reaction Status Date / Time No Known Allergies Allergy Unknown Verified 12/27/23 13:22 Home Medications Medication Instructions Recorded Confirmed Type melatonin 5 mg capsule 5 mg PO HS 03/22/20 01/07/24 History multivitamin (Daily Multi-Vitamin 1 tablet PO DAILY 04/02/23 01/07/24 History tablet) finasteride 5 mg tablet 5 mg PO DIRECTED HAIR LOSS 06/23/23 01/07/24 History spironolactone 100 mg tablet 100 mg PO DIRECTED HAIR LOSS 06/23/23 01/07/24 History pantoprazole 40 mg tablet,delayed 40 mg PO BID #180 tabs 12/20/23 01/07/24 Rx release propranolol 120 mg capsule,24 120 mg PO DAILY TREMORS 12/27/23 01/07/24 History hr,extended release Patient hx anesthesia problems: none Family hx anesthesia problems: none Results Review: All pre-operative results and documents have been reviewed as part of the pre-operative evaluation. [facility] Past Medical History Medical History Anxiety Essential tremor Hip pain, bilateral Insomnia Osteopenia Varicose veins of both lower extremities without ulcer or inflammation Surgical History Surgical History History of hernia repair (~2013) History of tubal ligation Family History Family History Sibling Acute myocardial infarction Other Heart disease Father No problems noted. Mother No problems noted. Social History Social History Social History: Caffeine- coffee daily Smoking status: Never smoker Alcohol intake: current Drinks per week: 4 Alcohol use details: wine Substance use: never Substance use type: does not use Lack of Transportation: No Lack of Food: Never True Current Housing: I Have Housing Concerned About Future Housing: No Difficulty Paying Gas/Electric Bills: No Difficulty Paying for Meds: No Currently Unemployed: No Education: Bachelor's Degree Difficulty w/ Childcare or Family Care: No Living arrangements: with family Occupation/Education: retired Gender identity (if verbalized by the patient): Female Sexual Orientation (if Verbalized by the Patient): Straight or Heterosexual Spiritual care concerns: No Agree to blood products: Yes Anes - Eval Final PreProcedure Day of Procedure 01/08/24 13:20 Patient weight: normal Heart: regular rate and rhythm Lungs: clear to auscultation Airway: Mallampati scale class II Neurological: alert and oriented Last oral intake: >/= 8 hours ASA classification: II Emergent: no Anesthetic plan: proceed Anesthesia type and monitoring: general ETT and standard monitoring Results Review: All pre-operative results and documents have been reviewed as part of the pre-operative evaluation. Informed Consent: The patient's anesthetic plan and its attendant risks and benefits were discussed with the patient/family/POA. Questions were solicited and answers provided to the satisfaction of the patient/family/POA.
[2024-01-08] MEDS: LACTATED RINGERS 1,000 ML 30 ML IV CONT ×2 (13:24→15:30)
[2024-01-08] MEDS: ACETAMINOPHEN 500 MG TABLET 1000 MG PO (13:41)
[2024-01-08] MEDS: ceFAZolin 2 GM/D5W 50 ML 2 GM/50 ML BAG IVPB (14:12)
[2024-01-08] MEDS: LIDO 1%/EPINEPHRINE 1:100,000 20 ML VIAL INFILTRATE (14:27)
--- NOTE | 2024-01-08 16:01 | P.OP_ITS ---
Procedure Note - Detailed Date of Procedure 01/08/24 Pre-op Diagnosis Allergic Fungal Sinsusitis Post-op Diagnosis Same Procedure Performed Right-sided endoscopic maxillary antrostomy with tissue removal Surgeon Indio Saeed MD Anesthesia General Indications see above Findings copious amounts of fungal debris took like 30 minutes of irrigating scraping off the anterior wall. Patient tolerated the procedure Description of Procedure patient identified consent verified preop. Patient was taken to the operating room. Time-out performed. General anesthesia induced endotracheal tube secured airway. Patient prepped draped position procedure confirmed. Afrin-soaked pledgets placed for 5 minutes then removed. 0 degree endoscope utilized. Likely septum deviated significantly to the left. This was right-sided procedure. Patient was marked. Double ball tip probe placed for fungal debris was coming out hole was widened maxillary antrostomy widened patient please widest I could go with straight through cutter and backbiter. 70 degree scope was utilized about 30 minutes of irrigation and scraping with frontal sinus curette removed all the fungal debris bleeding about 10 cc. Patient tolerated the procedure well no complications. Bleeding was stable essentially non- existent at the end of the procedure. I performed all dictated portions of procedure patient taken to PACU. Estimated Blood Loss 10 Drains No Packing No Pathology None sent Complications No immediate complications Condition Stable Disposition PACU [facility] Billing Surgery - Charge Forward: Surgery Billing
[2024-01-08] MEDS: oxyCODONE HCL (*CRX) 5 MG TAB IR PO (16:38)
== END 2024-01-08 17:10 | disposition home or self-care (01) ==
PROVIDERS: PCP Family Medicine; Visit Provider Otolaryngology
PROC: (CPT 31267; principal; 2024-01-08 15:15)
DX: J30.89 Other allergic rhinitis (principal); B49 Unspecified mycosis; G25.0 Essential tremor
CPT/HCPCS: 31267; A9270; J0330; J0690; J1100; J2405; J2704; J3010; J7120

== ENCOUNTER 2024-02-26 01:03 | Day surgery (SDC) | payer MEDICARE, SELFPAY ==
[2024-02-22 10:14] VITALS: BMI 19.2
--- NOTE | 2024-02-22 10:20 | PC.NURSE ---
Report to the Outpatient Waiting Room, entrance under the green pavilion located off [facility], at time _0915_ on date _[id number]_. Planned Procedure Time: _1115_. Time changes happen often and if your time is changed the preop area will call you the afternoon before. - You and your visitor will be asked to self-screen and do not enter if you have any COVID symptoms. - A mask is optional within the hospital at this time. Patients may have clear liquids (water, carbonated beverages, clear teas, apple juice) until 3 hours prior to surgery with a maximum of 20 ounces. - No food from midnight until time of surgery Take the following medications with a SIP of water the morning of surgery: ____Propanolol and Flonase DO NOT STOP ANY OF YOUR OTHER PRESCRIPTION MEDICATIONS PRIOR TO SURGERY ?EXCEPT THE FOLLOWING Medications to discontinue per physician None Date to take last dose Please no make-up, nail croatian, hairspray, perfume, deodorant, or body powder the day of surgery. No jewelry (including any body piercings) or valuables the day of surgery, leave them at home. Please take a shower or bath the night before, or the morning of, surgery with an antibacterial soap. Wear comfortable, loose fitting clothing. - Jewelry must be removed prior to entering the operating room. Rings and piercings that are not removed may be cut off. - The hospital will not accept responsibility for valuables. - Please leave all valuables, including medications, at home the day of surgery. If you are going home after surgery, a licensed emt driver must drive you home. - NO public transportation without another adult if you receive anesthesia. - We recommend that an adult stay with you for 24 hours following discharge. - We also recommend that you do not drive, make important decision, drink alcoholic beverages, or take any drugs that were not prescribed by your health care provider for at least 24 hours after your discharge time. Follow any additional instructions given to you from your surgeon. If you or anyone in your household have experienced Covid symptoms in the past week, please notify your surgeon or the nurse liaison at the phone number below for possible testing. Telephone instructions given to _Silvanayanelis__and asked if any additional questions and then verbalized understanding. Patient advised to call surgeon office or pre surgery nurse liaison [phone] if any additional questions.
--- NOTE | 2024-02-25 16:05 | PM.IMHP ---
H&P: HPI History of Present Illness Date/Time: 02/25/24 16:05 Chief Complaint: Allergic fungal sinusitis, chronic sinusitis Narrative: planned procedure Review of Systems Review of Systems: All systems reviewed & are unremarkable except as noted in HPI and below [facility] Past Medical History Medical History Anxiety Essential tremor Hip pain, bilateral Insomnia Osteopenia Varicose veins of both lower extremities without ulcer or inflammation Surgical History Surgical History History of hernia repair (~2013) History of tubal ligation Family History Family History Sibling Acute myocardial infarction Other Heart disease Father No problems noted. Mother No problems noted. Social History Social History Social History: Caffeine- coffee daily Smoking status: Never smoker Alcohol intake: current Drinks per week: 4 Alcohol use details: wine Substance use: never Substance use type: does not use Lack of Transportation: No Lack of Food: Never True Current Housing: I Have Housing Concerned About Future Housing: No Difficulty Paying Gas/Electric Bills: No Difficulty Paying for Meds: No Currently Unemployed: No Education: Bachelor's Degree Difficulty w/ Childcare or Family Care: No Living arrangements: with family Occupation/Education: retired Gender identity (if verbalized by the patient): Female Sexual Orientation (if Verbalized by the Patient): Straight or Heterosexual Spiritual care concerns: No Agree to blood products: Yes Meds Home Medications and Allergies Home Medications Medication Instructions Recorded Confirmed Type melatonin 5 mg capsule 5 mg PO HS 03/22/20 02/22/24 History finasteride 5 mg tablet 5 mg PO DIRECTED HAIR LOSS 06/23/23 02/22/24 History spironolactone 100 mg tablet 100 mg PO DIRECTED HAIR LOSS 06/23/23 02/22/24 History propranolol 120 mg capsule,24 120 mg PO DAILY TREMORS 12/27/23 02/22/24 History hr,extended release omeprazole 40 mg capsule,delayed 40 mg PO DAILY 01/28/24 02/22/24 History release fluticasone propionate 50 1 spray intranasal BID 02/22/24 02/22/24 History mcg/actuation nasal spray,suspension (Flonase Allergy Relief) Allergies Allergy/AdvReac Type Severity Reaction Status Date / Time No Known Allergies Allergy Unknown Verified 02/22/24 10:11 Exam Narrative: right-sided sinus disease Assessment and Plan Assessment and plan (1) Nasal crusting: Code(s): J34.89 - Other specified disorders of nose and nasal sinuses Status: Acute Assessment and Plan: plan OR right-sided revision maxillary antrostomy with tissue removal. As well as nasal endoscopy. Risks discussed bleeding infection failure to resolve symptoms need for referral to academics under postoperative bleeding infection CSF leak brain brain damage change in vision need further procedures will need to perform intraoperative cultures for fungus aerobic and anaerobic. Damage to any structure the clavicle by myself damage to any structure during adduction remains of anesthesia including vocal cord paralysis. (2) Post-operative pain: Code(s): G89.18 - Other acute postprocedural pain Status: Acute
[2024-02-26] VITALS (7 sets, daily range): BP systolic 99–131; BP diastolic 58–72; PULSE 64–85; RESP 10–16; TEMP 36.1–36.3; O2SAT 98–100
--- NOTE | 2024-02-26 07:37 | WPDHPUPDATE1 ---
History and Physical Update Update Date/Time: 02/26/24 07:37 History and Physical has been reviewed, including an updated exam of the patient. There are NO changes in the patient's condition. Risks, benefits, and alternatives have been discussed and questions answered. Patient agrees to proceed with procedure.
--- NOTE | 2024-02-26 10:06 | WPDANESEPPF ---
Anes - Initial Pre Proc Eval Procedure: Operation Date: 02/26/24 11:15 Proposed Procedures p Revision Right Maxillary Antrostomy with Tissue Removal - Indio Saeed MD Date/Time: 02/26/24 10:06 Surgeon: Indio Saeed MD Pre Op Diagnosis: allergic fungal sinusitis Patient Data Age: 73 Gender: F Height: 1.63 m Weight: 50.9 kg Allergies Allergy/AdvReac Type Severity Reaction Status Date / Time No Known Allergies Allergy Unknown Verified 02/22/24 10:11 Home Medications Medication Instructions Recorded Confirmed Type melatonin 5 mg capsule 5 mg PO HS 03/22/20 02/22/24 History finasteride 5 mg tablet 5 mg PO DIRECTED HAIR LOSS 06/23/23 02/22/24 History spironolactone 100 mg tablet 100 mg PO DIRECTED HAIR LOSS 06/23/23 02/22/24 History propranolol 120 mg capsule,24 120 mg PO DAILY TREMORS 12/27/23 02/22/24 History hr,extended release omeprazole 40 mg capsule,delayed 40 mg PO DAILY 01/28/24 02/22/24 History release fluticasone propionate 50 1 spray intranasal BID 02/22/24 02/22/24 History mcg/actuation nasal spray,suspension (Flonase Allergy Relief) Patient hx anesthesia problems: none Family hx anesthesia problems: none Results Review: All pre-operative results and documents have been reviewed as part of the pre-operative evaluation. [facility] Past Medical History Medical History Anxiety Essential tremor Hip pain, bilateral Insomnia Osteopenia Varicose veins of both lower extremities without ulcer or inflammation Surgical History Surgical History History of hernia repair (~2013) History of tubal ligation Family History Family History Sibling Acute myocardial infarction Other Heart disease Father No problems noted. Mother No problems noted. Social History Social History Social History: Caffeine- coffee daily Smoking status: Never smoker Alcohol intake: current Drinks per week: 4 Alcohol use details: wine Substance use: never Substance use type: does not use Lack of Transportation: No Lack of Food: Never True Current Housing: I Have Housing Concerned About Future Housing: No Difficulty Paying Gas/Electric Bills: No Difficulty Paying for Meds: No Currently Unemployed: No Education: Bachelor's Degree Difficulty w/ Childcare or Family Care: No Living arrangements: with family Occupation/Education: retired Gender identity (if verbalized by the patient): Female Sexual Orientation (if Verbalized by the Patient): Straight or Heterosexual Spiritual care concerns: No Agree to blood products: Yes Anes - Eval Final PreProcedure Day of Procedure 02/26/24 10:06 Patient weight: normal Heart: regular rate and rhythm Lungs: clear to auscultation Airway: Mallampati scale class II Neurological: alert and oriented Last oral intake: >/= 8 hours ASA classification: II Emergent: no Anesthetic plan: proceed Anesthesia type and monitoring: general ETT and standard monitoring Results Review: All pre-operative results and documents have been reviewed as part of the pre-operative evaluation. Informed Consent: The patient's anesthetic plan and its attendant risks and benefits were discussed with the patient/family/POA. Questions were solicited and answers provided to the satisfaction of the patient/family/POA.
[2024-02-26] MEDS: LACTATED RINGERS 1,000 ML 30 ML IV CONT ×2 (10:30→11:53)
[2024-02-26] MEDS: ACETAMINOPHEN 500 MG TABLET 1000 MG PO (10:30)
[2024-02-26] MEDS: ceFAZolin 2 GM/D5W 50 ML 2 GM/50 ML BAG IVPB (10:55)
[2024-02-26] MEDS: OXYMETAZOLINE HCL 0.05% NAS 15 ML BTL (*BKC) 1 SPRAY NASAL (11:00)
[2024-02-26] MEDS: LIDO 1%/EPINEPHRINE 1:100,000 50 ML VIAL INFILTRATE (11:02)
[2024-02-26] MEDS: TOBRAMYCIN SULFATE 80 MG/2 ML VIAL 400 MG IRRIGATION (11:24)
--- NOTE | 2024-02-26 11:29 | SUR.OPER ---
Cultures sent with [facility] and received by Dave
--- NOTE | 2024-02-26 13:31 | P.OP_ITS ---
Procedure Note - Detailed Date of Procedure 02/26/24 Pre-op Diagnosis allergic fungal sinusitis Post-op Diagnosis Same Procedure Performed Right-sided revision maxillary antrostomy Surgeon Indio Saeed MD Anesthesia General Indications see above Findings copious amounts of what appeared to be purulence and fungal debris in the right maxillary sinus. There widened a little bit further open but is still open quite a bit. Minimal bleeding. Patient tolerated the procedure well Description of Procedure patient identified consent verified preop. Patient brought operating. Time- out performed. General anesthesia induced endotracheal tube secured. Patient prepped draped position procedure confirmed 2nd time-out performed. Afrin- soaked pledgets placed in the right side for 5 minutes then removed. 0 degree scope utilized copious amounts of debris removed in totality debris was sectioned in half half sent for fungal cultures have sent for aerobic anaerobic. It appeared to be fungal with purulence. Wound copiously washed out with tobramycin infused saline. Patient tolerated the procedure well no complications blood loss 5 cc. I performed all dictated portions procedure care the patient given Anesthesiology patient taken to PACU. Estimated Blood Loss 5 Drains No Packing No Pathology None sent Complications No immediate complications Condition Stable Disposition PACU [facility] Billing Surgery - Charge Forward: Surgery Billing
== END 2024-02-26 13:29 | disposition home or self-care (01) ==
PROVIDERS: PCP Family Medicine; Visit Provider Otolaryngology
PROC: (CPT 31256; principal; 2024-02-26 11:15)
DX: J30.89 Other allergic rhinitis (principal); B48.8 Other specified mycoses
CPT/HCPCS: 31256; 87070; 87077; 87102; 87107; 87186; 87205; 87206; A9270; J0330; J0690; J1100; J1596; J2371; J2405; J2704; J3010; J3260; J7050; J7120

== ENCOUNTER 2024-04-14 12:36 | Outpatient (CLI) | payer MEDICARE, SELFPAY ==
[2024-04-14 14:50] LABS: Basophils Absolute Auto 0.1 K/mm3 (0.0-0.1); Basophils Percent Auto 0.8 % (0.2-1.2); Eosinophils Absolute Auto 0.2 K/mm3 (0-0.3); Eosinophils Percent Auto 2.4 % (0-4.4); Hematocrit 40.7 % (37.0-47.0); Hemoglobin 13.3 g/dL (12.0-15.0); Immature Granulocyte Absolute 0.02 K/mm3 (0.00-0.031); Immature Granulocyte Percent A 0.3 % (0-0.5); Lymphocytes Absolute Auto 1.93 K/mm3 (0.9-3.2); Lymphocytes Percent Auto 30.5 % (18.3-44.2); Mean Corpuscular HGB Conc 32.7 g/dl (32-36); Mean Corpuscular Hemoglobin 33.2 pg (26-34); Mean Corpuscular Volume 101.5 fl (80-100); Mean Platelet Volume 9.6 fl (7.4-10.4); Monocytes Absolute Auto 0.5 K/mm3 (0.1-0.6); Monocytes Percent Auto 7.9 % (2.6-8.5); Neutrophils Absolute Auto 3.7 K/mm3 (1.3-6.7); Neutrophils Percent Auto 58.1 % (45.5-73.1); Platelet Count Result 327 k/mm3 (150-375); Red Blood Count 4.01 M/mm3 (4.2-5.4); Red Cell Distribution Width 12.6 % (11.5-14.5); White Blood Count 6.3 K/mm3 (4.5-10.0)
[2024-04-14 14:58] LABS: Alanine Aminotransferase 11 U/L (6-35); Albumin Level 4.6 g/dL (3.5-5.1); Anion Gap 8 mmol/L (4-12); Aspartate Amino Transferase 35 U/L (14-36); Bilirubin,Total 0.5 mg/dL (0.2-1.3); Blood Urea Nitrogen 19 mg/dL (7-17); Calcium 9.4 mg/dL (8.4-10.2); Carbon Dioxide 30 mmol/L (22-30); Chloride 94 mmol/L (98-107); Estimated Glomerular Filt Rate > 60; Glucose 115 mg/dL (65-110); Potassium 4.5 mmol/L (3.4-5.0); Sodium 132 mmol/L (137-145)
[2024-04-14 14:59] LABS: Alkaline Phosphatase 87 U/L (38-126); Cholesterol 209 mg/dL (0-200); HDL Direct 65 mg/dL; Triglycerides 171 mg/dL (<150)
[2024-04-14 15:09] LABS: LDL Cholesterol Direct 99 mg/dL
[2024-04-14 15:24] LABS: Vitamin D 25 Hydroxy 69.1 ng/mL
[2024-04-15 10:35] LABS: Hemoglobin A1C 5.5 % (<5.7)
== END 2024-04-14 12:37 | disposition home or self-care (01) ==
LOC: ANHGOSHLAB 12:37
PROVIDERS: PCP Family Medicine; Visit Provider Nurse Practitioner Family
DX: E78.5 Hyperlipidemia, unspecified (principal); G25.0 Essential tremor; E55.9 Vitamin D deficiency, unspecified; R73.9 Hyperglycemia, unspecified
CPT/HCPCS: 36415; 80053; 80061; 82306; 83036; 84443; 85025

== ENCOUNTER 2024-09-08 10:46 | Outpatient (CLI) | payer MEDICARE, SELFPAY ==
--- NOTE | ~2024-09-08 | MM_ITS ---
EXAMINATION: MM screening ivis BI w sana HISTORY: Screening TECHNIQUE: Craniocaudal and mediolateral oblique 3-D tomosynthesis images were obtained and synthetic 2-D images were generated. CAD analysis was submitted and interpreted. COMPARISON: Comparison to multiple prior studies sequentially, with oldest reviewed study dated 04/10. BREAST PARENCHYMAL COMPOSITION: Not dense: There are scattered areas of fibroglandular density. FINDINGS: There is no evidence of suspicious mass, calcification, or architectural distortion to sugg est malignancy in either breast. There has been no suspicious interval change. IMPRESSION: 1. No mammographic evidence of malignancy. 2. Recommend routine screening mammography in one year. BI-RADS Category 1: Negative Reviewed, dictated and finalized at location B. [employer]
== END 2024-09-08 10:47 | disposition home or self-care (01) ==
LOC: MICIMG 10:47
PROVIDERS: PCP Family Medicine; Visit Provider Family Medicine
DX: Z12.31 Encounter for screening mammogram for malignant neoplasm of breast (principal)
CPT/HCPCS: 77063; 77067

== ENCOUNTER 2024-10-14 13:07 | Outpatient (CLI) | payer MEDICARE, SELFPAY ==
--- OUTSIDE RECORDS SUMMARY | 2024-10-14 15:10 | XMS_ITS | Clinical Summary ---
Author Organization [facility] Address [address] [place] [address] Care Team Providers Care Silk Screen Processor Name Role Phone Arlette Maya MD Primary Care Provider Source Comments [facility],non-owned Affiliates and Associated Physician Practices is amultiple site organization consisting of ambulatory clinics and hospital sitesin [place], [place], [place] and [place]. This disclosure is being madepursuant to the Care Everywhere program and may not contain all information available regarding this patient. Last updated 18.[facility] Allergies No known active allergies Medications * Be aware that medications may not be up to date on this document. Alwaysverify current medications with the patient. Medication Sig Dispensed Refills Start Date End Date Status finasteride (Proscar) 5 MG tablet Take 1 (one) tablet by mouth once daily Active fluconazole (Diflucan) 150 MG tablet Take 1 (one) tablet by mouth once 02/29/2024 Active fluticasone propionate (Flonase) 50 MCG/ACT nasal spray [place] 2 (two) sprays into each nostril once daily as needed 02/26/2024 Active melatonin 5 MG capsule Take 1 (one) capsule by mouth at bedtime Active omeprazole (PriLOSEC) 40 MG capsule Take 1 (one) capsule by mouth once daily 04/09/2024 Active propranolol ER 24hr (Inderal LA) 120 MG capsule Take 1 (one) capsule by mouth once daily 04/26/2024 Active spironolactone (Aldactone) 100 MG tablet Take 1 (one) tablet by mouth once daily Active Active Problems Problem Noted Date Diagnosed Date Chronic maxillary sinusitis 05/14/2024 Fungal sinusitis 05/14/2024 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 Flat. Unchanged from last visit. See Dr. Pearce in 6 months. 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 Encounters Date Type Department Care Team Description 09/19/2024 Travel 09/17/2024 Telephone [facility] - ENT [address] [place] [phone] Wood Camargo MD Appointment from Last 3 Months Immunizations Name Administration Dates Next Due INFLUENZA VACCINE, HIGH-DOSE , QUADR. (FLUZONE HIGH-DOSE QUADRIVALENT; 65Y+), 0.7 ML (HD-IIV4) 04/26/2018 Social History Tobacco Use Types Packs/Day Years Used Date Smoking Tobacco: Never Smokeless Tobacco: Never Alcohol Use Standard Drinks/Week Comments Yes 0 (1 standard drink = 0.6 oz pur e alcohol) occ Sex and Gender Information Value Date Recorded Sex Assigned at Not on file Gender Identity Not on file Sexual Orientation Not on file Last Filed Vital Signs Vital Sign Reading Time Taken Comments Blood Pressure 142/85 05/14/2024 8:43 AM CDT Pulse 65 05/14/2024 8:43 AM CDT Temperature - - Respiratory Rate - - Oxygen Saturation - - Inhaled Oxygen Concentration - - Weight 50.3 kg (111 lb) 05/14/2024 8:43 AM CDT Height 162.6 cm (5' 4 ) 05/14/2024 8:43 AM CDT Body Mass Index 19.05 05/14/2024 8:43 AM CDT Plan of Treatment Upcoming Encounters Date Type Department Care Team (Late st Contact Info) Description 10/29/2024 1:45 PM CDT Office Visit [facility] - ENT [address] [place] [address] [phone] Wood Camargo MD [address] [place] [address] [place] [address] Health Maintenance Due Date Last Done Comments BONE DENSITY TESTING 1950 COLOGUARD (AGES 45-75) - COL ON CA SCREENING 1949 COLON MONITORING 1949 COLONOSCOPY - COLON CA SCREENING 1949 CT COLONOGRAPHY - COLON CA SCREENING 1949 Colorectal Cancer Screening 1949 FIT - COLON CA SCREENING 1949 FLEX SIG - COLON CA SCREENING 1949 LIPID TESTING 1949 MAMMOGRAM 1950 MEDICARE AWV 12 MONTHS 1949 HEPATITIS C SCREENING 05/17/1967 DTAP/TDAP/TD VACCINES (1 - Tdap) 1968 PNEUMOCOCCAL VACCINE 50+ (1 of 1 - PCV) 1999 ZOSTER VACCINE (1 of 2) 1999 COVID-19 VACCINE ( - 2023-2 5 season) 2024 INFLUENZA VACCINE (#1) 2024 04/26/2018 Respiratory Syncytial Virus (RSV) Vaccine Pt: or over 60 yrs (1 - 1-dose 75+ series) 2024 DEPRESSION SCREENING 07/23/2024 HEPATITIS B VACCINE Aged Out No longe r eligible based on patient's age to complete this topic HIB VACCINE Aged Out No longer eligi ble based on patient's age to complete this topic HPV VACCINE Aged Out No longer eligi ble based on patient's age to complete this topic MENINGOCOCCAL (Group B) VACC INE SHARED DECISION-MAKING Aged Out No longer eligibl e based on patient's age to complete this topic MENINGOCOCCAL GROUPS A/C/Y/W VACCINE Aged Out No longer eligible b ased on patient's age to complete this topic Care Teams Silk Screen Processor Relationship Specialty Start Date End Date Arlette Maya MD [facility] [place] [address] PCP - General Family Medicine 05/14/24
--- OUTSIDE RECORDS SUMMARY | 2024-10-14 15:11 | XMS_ITS | Referral Summary ---
Author Organization [facility] [place] Address [address] [place] [address] Care Team Providers Care Service Station Operator Name Role Phone No, Physician Primary Care Provider [phone] Allergies No known active allergies Medications propranolol LA (INDERAL LA) 120 mg 24 hr capsule 8 Active melatonin 5 mg capsule Take by mouth. Activ e albuterol HFA (PROVENTIL HFA,VENTOLIN HFA,PROAIR HFA) 90 mcg/actuation inhaler INHALE 1 PUFF BY MOUTH EVERY 4 HOURS NEEDED FOR BRONCHOSPASM 3 Active finasteride (PROSCAR) 5 mg tablet Take 1 tablet (5 mg total) by mouth daily 3 Active omeprazole (PriLOSEC) 20 mg capsule 3 Active spironolactone (ALDACTONE) 100 mg tablet Take 1 tablet (100 mg total) by mouth daily 3 Active benzonatate (TESSALON) 200 mg capsuleIndicati ons:Chronic cough Take 1 capsule (200 mg total) by mouth 3 (three) times a day as needed for cough 30 capsule 3 Active Active Problems Problem Noted Date Diagnosed Date Pseudophakia of both eyes 03/07/2018 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 Flat. Unchanged from last visit. See Dr. Pearce in 6 months. Social History Tobacco Use Types Packs/Day Years Used Date Smoking Tobacco: Never Smokeless Tobacco: Never Personal Safety Answer Date Recorded Getting School Help Needed Not on file 10/06 Comments Unknown Sex and Gender Information Value Date Recorded Sex Assigned at Not on file Legal Sex Female 8:53 AM CDT Gender Identity Not on file Sexual Orientation Not on file Last Filed Vital Signs Vital Sign Reading Time Taken Comments Blood Pressure 158/80 03/25/2023 6:48 PM CDT Pulse 68 03/25/2023 6:48 PM CDT Temperature 36.8 C (98.2 F) 03/25/2023 6:48 PM CDT Respiratory Rate 20 03/25/2023 6:48 PM CDT Oxygen Saturation 97% 03/25/2023 6:48 PM CDT Inhaled Oxygen Concentration - - Weight 56.7 kg (125 lb) 03/25/2023 6:48 PM CDT Height 162.6 cm (5' 4 ) 03/25/2023 6:48 PM CDT Body Mass Index 21.46 03/25/2023 6:48 PM CDT Plan of Treatment Not on file Insurance MEDICARE COMMERCIAL GENERIC MEDICARE COMMERCIAL GENERIC AETNA Care Teams Service Station Operator Relationship Specialty Start Date End Date No, Physician PCP - General 01/24/18
--- OUTSIDE RECORDS SUMMARY | 2024-10-14 15:11 | XMS_ITS | Clinical Summary ---
Author Organization [facility] Main [place] Address [address] [place] [address] Care Team Providers Care Claims Adjuster Name Role Phone No, Physician Primary Care Provider [phone] Allergies No known active allergies Medications propranolol [...] visit. See Dr. Pearce in 6 months. Surgical History Surgery Date Site/Laterality Comments CATARACT EXTRACTION W/ INTRA OCULAR LENS IMPLANT Approx 2013 Bilateral ([facility]) Medical History Medical History Date Comments Has a tremor Of Lower Face & Uper Left Arm Social History Tobacco Use Types Packs/Day Years Used Date Smoking Tobacco: Never Smokeless Tobacco: Never Personal Safety Answer Date Recorded Getting School Help Needed Not on file 10/06 Comments Unknown Sex and Gender Information Value Date Recorded Sex Assigned at Not on file Legal Sex Female 8:53 AM CDT Gender Identity Not on file Sexual Orientation Not on file Obstetrics History Last Filed Vital Signs Vital Sign Reading [...] 03/25/2023 6:48 PM CDT Plan of Treatment Health Maintenance Due Date Last Done Comments Colon Cancer Screening-Colonoscopy 1949 Depression Screening 1949 Fall Risk Assessment 1949 Hepatitis C Screening 1949 Osteoporosis Screening-Bone Density Scan 1949 DTaP/Tdap/Td Vaccine (1 - Tdap) 1960 Hepatitis B Screening 1967 Zoster Vaccine (1 of 2) 1999 Well Visit 65+ 2014 Covid-19 Vaccine (2023-2 5 season) 2024 05/22/2022, 10/27/2021, 05/23/2021, Additional history exists Influenza Vaccine (#1) 2024 , 06/08/2021, 05/11/2020, Additional history exists Pneumococcal vaccine 65+ Completed 02/18/2020, 12/22 Insurance MEDICARE COMMERCIAL GENERIC MEDICARE COMMERCIAL GENERIC AET Care Teams Claims Adjuster Relationship Specialty Start Date End Date No, Physician PCP - General 01/24/18
[2024-10-14 19:44] LABS: Alanine Aminotransferase 14 U/L (6-35); Albumin Level 4.5 g/dL (3.5-5.1); Alkaline Phosphatase 98 U/L (38-126); Anion Gap 9 mmol/L (4-12); Aspartate Amino Transferase 57 U/L (14-36); Bilirubin,Total 0.5 mg/dL (0.2-1.3); Blood Urea Nitrogen 21 mg/dL (7-17); Calcium 9.2 mg/dL (8.4-10.2); Carbon Dioxide 29 mmol/L (22-30); Chloride 99 mmol/L (98-107); Cholesterol 174 mg/dL (0-200); Estimated Glomerular Filt Rate 58; Glucose 85 mg/dL (65-110); HDL Direct 48 mg/dL; Potassium 5.3 mmol/L (3.4-5.0); Sodium 137 mmol/L (137-145); Triglycerides 172 mg/dL (<150)
[2024-10-14 19:55] LABS: LDL Cholesterol Direct 80 mg/dL
[2024-10-14 20:09] LABS: Basophils Absolute Auto 0.1 K/mm3 (0.0-0.1); Basophils Percent Auto 1.2 % (0.2-1.2); Eosinophils Absolute Auto 0.3 K/mm3 (0-0.3); Eosinophils Percent Auto 3.8 % (0-4.4); Hematocrit 39.9 % (37.0-47.0); Hemoglobin 12.8 g/dL (12.0-15.0); Immature Granulocyte Absolute 0.01 K/mm3 (0.00-0.031); Immature Granulocyte Percent A 0.1 % (0-0.5); Lymphocytes Absolute Auto 2.12 K/mm3 (0.9-3.2); Lymphocytes Percent Auto 28.1 % (18.3-44.2); Mean Corpuscular HGB Conc 32.1 g/dl (32-36); Mean Corpuscular Hemoglobin 32.6 pg (26-34); Mean Corpuscular Volume 101.5 fl (80-100); Mean Platelet Volume 9.7 fl (7.4-10.4); Monocytes Absolute Auto 0.6 K/mm3 (0.1-0.6); Monocytes Percent Auto 7.5 % (2.6-8.5); Neutrophils Absolute Auto 4.5 K/mm3 (1.3-6.7); Neutrophils Percent Auto 59.3 % (45.5-73.1); Platelet Count Result 377 k/mm3 (150-375); Red Blood Count 3.93 M/mm3 (4.2-5.4); Red Cell Distribution Width 11.9 % (11.5-14.5); White Blood Count 7.6 K/mm3 (4.5-10.0)
[2024-10-14 20:12] LABS: Hemoglobin A1C 5.4 % (<5.7)
== END 2024-10-14 13:08 | disposition home or self-care (01) ==
LOC: ANHGOSHLAB 13:08
PROVIDERS: PCP Family Medicine; Visit Provider Nurse Practitioner Family
DX: E78.5 Hyperlipidemia, unspecified (principal); I10 Essential (primary) hypertension; R73.01 Impaired fasting glucose
CPT/HCPCS: 36415; 80053; 80061; 83036; 85025

== ENCOUNTER 2024-10-24 13:51 | Outpatient (CLI) | payer MEDICARE, SELFPAY ==
--- OUTSIDE RECORDS SUMMARY | 2024-10-24 13:53 | XMS_ITS | Clinical Summary ---
Author Organization [facility] Address [address] [place] [address] Care Team Providers Care Automation Test Engineer Name Role Phone Arlette Maya MD Primary Care Provider Source Comments [facility],non-owned Affiliates and Associated Physician Practices is amultiple site organization consisting of ambulatory clinics and hospital sitesin [place], [place], [place] and [place]. This disclosure is being madepursuant to the Care Everywhere program and may not contain all information available regarding this patient. Last updated 18.[facility] [employer] Allergies No known active allergies Medications * [...] fluticasone propionate (Flonase) 50 MCG/ACT nasal spray [place] 2 (two) sprays into each nostril once [...] Care Team Description 09/19/2024 Travel 09/17/2024 Telephone [facility] - ENT [address] [place] [phone] Wood Camargo MD Appointment from Last 3 [...] Description 10/29/2024 1:45 PM CDT Office Visit [facility] - ENT [address] [place] [phone] Wood Camargo MD [address] [place] [address] [place] [address] Health Maintenance Due Date Last Done Comments [...] VACCINE ( - 2023-2 5 season) 2024 Respiratory Syncytial Virus (RSV) Vaccine Pt: or over 60 yrs (1 - 1-dose 75+ series) 2024 DEPRESSION SCREENING 07/23/2024 INFLUENZA VACCINE (Season Ended) 2025 04/26/20 18 HEPATITIS B VACCINE Aged Out No longe [...] age to complete this topic Care Teams Automation Test Engineer Relationship Specialty Start Date End Date Arlette Maya MD [facility] [place] [address] PCP - General Family Medicine 05/14/24
--- OUTSIDE RECORDS SUMMARY | 2024-10-24 13:53 | XMS_ITS | Clinical Summary ---
Author Organization [facility] Address [facility] [place] [address] Care Team Providers Care Senior Teradata Developer Name Role Phone Arlette Maya MD Primary Care Provider Allergies No known active allergies Medications DIALYVITE VITAMIN D3 MAX 1.25 MG (99806 UT) Tab Take 1 tablet by mouth once a week. 06/01/2021 Active propranolol LA 120 MG 24 hr capsule Take 120 mg by mouth daily. 08/29/2021 Active Melatonin 5 MG Cap Active famotidine (PEPCID) 20 MG tablet Take 20 mg by mouth daily. 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 Flat. Unchanged from last visit. See Dr. Pearce in 6 months. 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 Social History Tobacco Use Types Packs/Day Years Used Date Smoking Tobacco: Never Smokeless Tobacco: Never Tobacco Cessation:Counseling Given: No Alcohol Use Standard Drinks/Week Comments Yes 0 (1 standard drink = 0.6 oz pur e alcohol) 4 drinks per week Comments Unknown Sex and Gender Information Value Date Recorded Sex Assigned at Not on file Legal Sex Female 7:52 AM CUSTOMER SERVICE SPECIALIST Gender Identity Not on file Sexual Orientation Not on file Last Filed Vital Signs Vital Sign Reading Time Taken Comments Blood Pressure 144/83 02/24/2022 9:51 AM CDT Pulse 60 02/24/2022 9:51 AM CDT Temperature 36.8 C (98.3 F) 02/24/2022 9:51 AM CDT Respiratory Rate 18 11/03/2021 10:41 AM CDT Oxygen Saturation 100% 02/24/2022 9:51 AM CDT Inhaled Oxygen Concentration - - Weight 57.4 kg (126 lb 9.6 oz) 02/24/2022 9:51 A M CDT Height 162.6 cm (5' 4 ) 02/24/2022 9:51 AM CDT Body Mass Index 21.73 02/24/2022 9:51 AM CDT Plan of Treatment Health Maintenance Due Date Last Done Comments Colorectal Cancer Screening Colonoscopy (10 Years) 1949 Hepatitis C 1967 DTaP, Tdap and Td Vaccines (1 - Tdap) 1968 Zoster Vaccines (1 of 2) 1999 Annual Medicare Wellness Visit 2014 Dexa Scan (General) 2014 COVID-19 Vaccine ( season) 2024 10/27/2021, 05/23/2021, 10/02/2020, Additional history exists RSV Immunization or 60+ Years (1 - 1-dose 75+ series) 2024 Pneumococcal Vaccine: 65+ Years Completed 02/18/2020, 01/13/2019 Meningococcal B Vaccine Aged Out No l onger eligible based on patient's age to complete this topic Meningococcal Vaccine Aged Out No vega surekha eligible based on patient's age to complete this topic RSV Immunizations Under 20 Months Aged Out No longer eligible based on patient's age to complete this topic Insurance MEDICARE AETNA Care Teams Senior Teradata Developer Relationship Specialty Start Date End Date Arlette Maya MD [address] [place] [address] PCP - General FAMILY PRACTICE 11/03/21
--- OUTSIDE RECORDS SUMMARY | 2024-10-24 13:53 | XMS_ITS | Referral Summary ---
Author Organization [facility] Main [place] Address [address] [place] [address] Care Team Providers Care Cobbler Mckay Name Role Phone No, Physician Primary Care Provider [phone] Allergies No known active allergies Medications propranolol [...] GENERIC MEDICARE COMMERCIAL GENERIC AETNA Care Teams Cobbler Mckay Relationship Specialty Start Date End Date No, Physician PCP - General 01/24/18
--- OUTSIDE RECORDS SUMMARY | 2024-10-24 13:53 | XMS_ITS | Clinical Summary ---
Author Organization [facility] Main [place] Address [address] [place] [address] Care Team Providers Care Boarding Kennel Or Cattery Operator Name Role Phone No, Physician Primary Care Provider [phone] Allergies No known active allergies Medications propranolol [...] GENERIC MEDICARE COMMERCIAL GENERIC AET Care Teams Boarding Kennel Or Cattery Operator Relationship Specialty Start Date End Date No, Physician PCP - General 01/24/18
[2024-10-24 18:27] LABS: Alanine Aminotransferase 13 U/L (6-35); Albumin Level 4.5 g/dL (3.5-5.1); Alkaline Phosphatase 105 U/L (38-126); Anion Gap 9 mmol/L (4-12); Aspartate Amino Transferase 33 U/L (14-36); Bilirubin,Total 0.5 mg/dL (0.2-1.3); Blood Urea Nitrogen 21 mg/dL (7-17); Calcium 9.4 mg/dL (8.4-10.2); Carbon Dioxide 29 mmol/L (22-30); Chloride 98 mmol/L (98-107); Estimated Glomerular Filt Rate 60; Glucose 101 mg/dL (65-110); Sodium 136 mmol/L (137-145)
== END 2024-10-24 13:52 | disposition home or self-care (01) ==
LOC: ANHGOSHLAB 13:52
PROVIDERS: PCP Family Medicine; Visit Provider Nurse Practitioner Family
DX: E87.5 Hyperkalemia (principal)
CPT/HCPCS: 36415; 80053

== ENCOUNTER 2024-11-10 15:18 | Outpatient (CLI) | payer MEDICARE, SELFPAY ==
--- NOTE | 2024-11-10 15:36 | ECG_ITS ---
Test Date: 2024-11-10 15:50:50 Measurements Intervals [place] Rate: 62 P: 54 UT: 167 QRS: -4 QRSD: 79 T: 46 QT: 400 QTc: 409 Interpretive Statements SINUS RHYTHM POSSIBLE RIGHT VENTRICULAR CONDUCTION DELAY BORDERLINE ECG No previous ECG available for comparison Electronically Signed On 11-10-2024 15:53:45 CDT by Tyree Abel D.O.
--- OUTSIDE RECORDS SUMMARY | 2024-11-10 17:19 | XMS_ITS | Clinical Summary ---
Author Organization [facility] Address [address] [place] [address] Care Team Providers Care Mucking Machine Operator Name Role Phone Arlette Maya MD Primary Care Provider Source Comments [facility],non-owned Affiliates and Associated Physician Practices is amultiple site organization consisting of ambulatory clinics and hospital sitesin [place], [place], [place] and [place]. This disclosure is being madepursuant to the Care Everywhere program and may not contain all information available regarding this patient. Last updated 18.[facility] Allergies No known active allergies Medications * Be aware that medications may not be up to date on this document. Alwaysverify current medications with the patient. finasteride (Proscar) 5 MG tablet Take 1 (one) tablet by mouth once daily Active fluconazole (Diflucan) 150 MG tablet Take 1 (one) tablet by mouth once 02/29/2024 Active fluticasone propionate (Flonase) 50 MCG/ACT nasal spray [place] 2 (two) sprays into each nostril once [...] (one) tablet by mouth once daily Active ketoconazole (Nizoral) 2 % shampoo Apply to affected area once daily 08/21/2024 Active Active Problems Problem Noted Date Diagnosed [...] Encounters Date Type Department Care Team Description 10/29/2024 1:45 PM CDT Office Visit [facility] - ENT [address] [place] [phone] Wood Camargo MD Chronic maxillary sinusitis (Primary Dx); Fungal sinusitis 10/29/2024 Travel 09/19/2024 Travel 09/17/2024 Telephone [facility] - ENT [address] [place] [phone] Wood Camargo MD Appointment from Last 3 Months Immunizations Immunization Administration Dates Next Due COVID MODERNA BIVALENT 12Y+ 50MCG/0.5ML 05/22/2022 COVID PFIZER 12+YR 30MCG/0.3mL 05/23/2024,2022 Covid Moderna primary monova lent 12+ yr 0.5mL 10/27/2021,05/23/2021,10/02/2020,2020 INFLUENZA VACCINE, ADJUVANTE D, QUADR. (FLUAD QUADRIVALENT; 65Y+) (AIIV4) 05/20/2023,05/29/2022,06/08/2021 INFLUENZA VACCINE, ADJUVANTE D, TRIV. (FLUAD TRIVALENT; 65Y+) (AIIV3) 05/26/2019 INFLUENZA VACCINE, HIGH-DOSE , QUADR. (FLUZONE HIGH-DOSE QUADRIVALENT; 65Y+), 0.7 ML (HD-IIV4) 05/11/2020,04/26/2018 INFLUENZA VACCINE, HIGH-DOSE , TRIV. (FLUZONE HIGH-DOSE TRIVALENT; 65Y+) (HD-IIV3) 04/14/2024,05/19/2017 INFLUENZA VACCINE, TRIV. (FL UZONE; FLULAVAL; FLUARIX; AFLURIA TRIVALENT; 6MO+), 0.5 ML (IIV3) 05/13/2015 PNEUMOCOCCAL PPV VACCINE 02/18/2020 Pneumococcal Pcv13 Conj 01/13/2019 RSV ABRYSVO PREG OR 60y+ 0.5mL 06/06/2023 Zoster Hzv Vacc Recombinant Inj Im 08/08/2023, Social History Tobacco Use Types Packs/Day Years Used Date Smoking Tobacco: Never Smokeless Tobacco: Never Alcohol Use Standard Drinks/Week Comments Yes 0 (1 standard drink = 0.6 oz pur e alcohol) occ Comments Unknown Sex and Gender Information Value Date Recorded Sex Assigned at Not on file Legal Sex Female 10:49 AM CDT Gender Identity Not on file Sexual Orientation Not on file Last Filed Vital Signs Vital Sign Reading Time Taken Comments Blood Pressure 154/86 10/29/2024 1:14 PM CDT Pulse 58 10/29/2024 1:14 PM CDT Temperature - - Respiratory Rate - - Oxygen Saturation - - Inhaled Oxygen Concentration - - Weight 52 kg (114 lb 9.6 oz) 10/29/2024 1:14 PM CDT Height 162.6 cm (5' 4 ) 10/29/2024 1:14 PM CDT Body Mass Index 19.67 10/29/2024 1:14 PM CDT Plan of Treatment Upcoming Encounters Date Type Department Care Team (Late st Contact Info) Description 11/19/2024 1:30 PM CDT Office Visit [facility] - ENT [address] [place] [phone] Wood Camargo MD [address] [place] [address] [place] [address] Health Maintenance Due Date Last Done Comments BONE DENSITY TESTING 1949 COLOGUARD (AGES 45-75) - COLON CA SCREENING 1949 COLON MONITORING 1949 COLONOSCOPY - COLON CA SCREENING 1949 CT COLONOGRAPHY - COLON CA SCREENING 1949 Colorectal Cancer Screening 1949 FIT - COLON CA SCREENING 1949 FLEX SIG - COLON CA SCREENING 1949 LIPID TESTING 1949 MAMMOGRAM 1949 MEDICARE AWV 12 MONTHS 1949 HEPATITIS C SCREENING 05/17/1967 DTAP/TDAP/TD VACCINES (1 - Tdap) 1968 DEPRESSION SCREENING 07/23/2024 COVID-19 VACCINE ( season) 2024 05/23/2024, 05/20/2023, 05/22/2022, Additional history exists PNEUMOCOCCAL VACCINE 50+ Completed 02/18/2020, 12/22 Respiratory Syncytial Virus (RSV) Vaccine Pt: or over 60 yrs Completed 06/06/2023 ZOSTER VACCINE Completed 08/08/2023, 06/06/2023 INFLUENZA VACCINE Completed 04/14/2024, , 05/29/2022, Additional history exists HEPATITIS B VACCINE Aged Out No longe r eligible based on patient's age to complete this topic HIB VACCINE Aged Out No longer eligi ble based on patient's age to complete this topic HPV VACCINE Aged Out No longer eligi ble based on patient's age to complete this topic MENINGOCOCCAL (Group B) VACCINE SHARED DECISION-MAKING Aged Out No longer eligible based on patient's age to complete this topic MENINGOCOCCAL GROUPS A/C/Y/W VACCINE Aged Out No longer eligible based on patient's age to complete this topic Procedures Procedure Name Priority Date/Time Associated Diagnosis Comments MA ENDO NASAL SINUS BX POLYP DEBRID RT SIDE Routine 10/29/2024 2:32 PM CDT Chronic maxillary sinusitis Fungal sinusitis from Last 3 Months Results * MA ENDO NASAL SINUS BX POLYP DEBRID RT SIDE (10/29/2024 2:32 PM CDT) Narrative Wood Camargo MD - 10/29/2024 2:32 PM CDT Wood Camargo MD 10/29/2024 2:35 PM Procedure: Nasal Endoscopy With Debridement Anesthesia: Bilateral Nasal Cavity sprayed with Lidocaine and Phenylephrine Detail: Rigid nasal endoscopy was performed in right nasal cavity. We visualized the entire septum as well as the inferior turbinate, middle turbinate, superior turbinate and sphenoethmoid recess. We also visualized the nasopharynx. Unless mentioned below, these structures were normal. In the right maxillary sinus there is a large crust. I used a curved suction to remove this from her nasal cavity. We were then able to further visualize into the maxillary sinus and there is a large amount of purulent thick mucus. I removed is much as possible but I could not remove at all. Posteriorly and inferiorly you were able to see the mucosa which is irritated. Superior mucosa has improved since last visit. EBL: minimal us Wood Camargo MD PROCEDURE/MINOR SURGICAL OR DERABLES Final Result from Last [address] [place] [address] MEDICARE [facility] MEDICARE Care Teams Mucking Machine Operator Relationship Specialty Start Date End Date Arlette Maya MD [address] [facility] [address] [address] PCP - General Family Medicine 05/14/24
--- OUTSIDE RECORDS SUMMARY | 2024-11-10 17:19 | XMS_ITS | Clinical Summary ---
Author Organization [facility] Main [place] Address [address] [place] [address] Care Team Providers Care Clinical Appeals Specialist Name Role Phone No, Physician Primary Care Provider [phone] Allergies No known active allergies Medications propranolol [...] GENERIC MEDICARE COMMERCIAL GENERIC AET Care Teams Clinical Appeals Specialist Relationship Specialty Start Date End Date No, Physician PCP - General 01/24/18
--- OUTSIDE RECORDS SUMMARY | 2024-11-10 17:19 | XMS_ITS | Clinical Summary ---
Author Organization [facility] Address [facility] [place] [address] Care Team Providers Care Resourcing Consultant Name Role Phone Arlette Maya MD Primary Care Provider Allergies No known active allergies Medications DIALYVITE VITAMIN D3 MAX 1.25 MG (37832 UT) Tab Take 1 tablet by mouth [...] on file Legal Sex Female 7:52 AM LOAN COUNSELOR Gender Identity Not on file Sexual Orientation [...] - 1-dose 75+ series) 2024 Pneumococcal Vaccine: 50+ Years Completed 02/18/2020, 01/13/2019 Meningococcal B Vaccine Aged Out No l onger eligible based on patient's age to complete this topic Meningococcal Vaccine Aged Out No vega surekha eligible based on patient's age to complete this topic RSV Immunizations Under 20 Months Aged Out No longer eligible based on patient's age to complete this topic Insurance MEDICARE AETNA Care Teams Resourcing Consultant Relationship Specialty Start Date End Date Arlette Maya MD [address] [place] [address] PCP - General FAMILY PRACTICE 11/03/21
--- OUTSIDE RECORDS SUMMARY | 2024-11-10 17:19 | XMS_ITS | Referral Summary ---
Author Organization [facility] Main [place] Address [address] [place] [address] Care Team Providers Care Apprentice/Lineman Name Role Phone No, Physician Primary Care Provider Allergies No known active allergies Medications propranolol [...] GENERIC MEDICARE COMMERCIAL GENERIC AETNA Care Teams Apprentice/Lineman Relationship Specialty Start Date End Date No, Physician PCP - General 01/24/18
== END 2024-11-10 15:19 | disposition home or self-care (01) ==
PROVIDERS: PCP Family Medicine; Visit Provider Nurse Practitioner Family
DX: Z01.818 Encounter for other preprocedural examination (principal); R94.31 Abnormal electrocardiogram [ECG] [EKG]
CPT/HCPCS: 93005

== ENCOUNTER 2025-04-13 15:17 | Outpatient (CLI) | payer MEDICARE, SELFPAY ==
--- OUTSIDE RECORDS SUMMARY | 2025-04-13 15:24 | XMS_ITS | Encounter Summary ---
Author Organization [facility] Address [address] [facility] [place] [address] Care Team Providers Care Trimming Caser Name Role Phone Arlette Maya MD Primary Care Provider Encounter Details Date Type Department Care Team (Late Contact Info) Description 11/14/2024 Lab Requisition [facility] - Pathology Lab [address] [place] [phone] Wood Camargo MD [address] [place] [place] [address] [place] [address] Illness, unspecified Social History Tobacco Use Types Packs/Day Years Used Date Smoking Tobacco: Never Smokeless Tobacco: Never Alcohol Use Standard Drinks/Week Comments Yes 0 (1 standard drink = 0.6 oz pur e alcohol) occ Comments Unknown Sex and Gender Information Value Date Recorded Sex Assigned at Not on file Legal Sex Female 10:49 AM CDT Gender Identity Not on file Sexual Orientation Not on file documented as of this encounter Plan of Treatment Upcoming Encounters Date Type Department Care Team (Late Contact Info) Description 06/24/2025 12:45 PM HOG COOLER Office Visit [facility] - ENT [address] [place] [phone] Wood Camargo MD [address] [place] [place] [address] [place] [address] documented as of this encounter Procedures Procedure Name Priority Date/Time Associated Diagnosis Comments PATHOLOGY TISSUE Routine 11/13/2024 10:0 0 AM CDT Illness, unspecified documented in this encounter Results * PATHOLOGY TISSUE (11/13/2024 10:00 AM CDT) Case Report Surgical Pathology Report Case: [id number] Authorizing Provider: Wood Camargo MD Collected: 11/13/2024 10:00 AM Ordering Location: [facility] - Received: 11/14/2024 11:38 AM Pathology Lab Pathologist: Quin Dobson MD Specimen: Sinus, 1. sinus contents 11/20/2024 10:14 PM CDT [facility] Final Diagnosis Sinus contents, removal: - Fragments of sinonasal mucosa with moderate to severe chronic inflammation and eosinophilic mucin - Scant unremarkable bone fragments - GMS stain is negative for fungal organisms - Negative for malignancy 11/20/2024 10:14 PM CDT [facility] at 2214 CDT Microscopic Description and Comment No marked eosinophilic infiltrate is noted. 11/20/2024 10:14 PM CDT [facility] Clinical History The patient is a 74 year old female with history of sinus issues and persistent nasal discharges. 11/20/2024 10:14 PM CDT [facility] Gross Description The requisition and specimen(s) are identified with the patient's name, Mary Catherine. Received in formalin, specimen A, 1 sinus contents is a 5.0 x 4.5 x 1.5 cm aggregate of roberts-pink tissue fragments and red-brown clot, representatively submitted in cassette A1. -IKD The remaining specimen is submitted in cassettes [id number]./WALTER 11/20/2024 10:14 PM CDT [facility] Pathologist Location at [facility] 11/20/2024 10:14 PM CDT [facility] Disclaimer The performance characteristics of all immunohistochemical and indirect immunofluorescence stains (if any) cited in this report were determined by the Histopathology Laboratory of [facility]. Some of these tests were developed by our own laboratory and have not been cleared or approved by the US Food and Drug Administration. The FDA does not require this test to go through premarket FDA review. These tests are used for clinical purposes. They should not be regarded as investigational or for research. This laboratory is certified under the Clinical Laboratory Improvement Amendments (CLIA) as qualified to perform high complexity clinical laboratory testing. This case has been personally reviewed and interpreted by the attending (teaching) pathologist. 11/20/2024 10:14 PM CDT [facility] Embedded Images 11/20/2024 10:14 PM CDT [facility] Pathology/Cytolo gy SINUS / Unknown 11/13/2024 10:00 AM CDT 11/14/2024 11:38 AM CDT Wood Camargo MD LAB - PATHOLOGY/CYTOLOGY OR DERABLES Final Result [facility] [address] [phone] documented in this encounter Visit Diagnoses Diagnosis Illness, unspecified documented in this encounter Additional Health Concerns Infection Onset Date Last Indicated Resolved Time ESBL GNR 11/13/2024 11/13/2024 11/24/2024 9:38 AM CDT ESBL Hx Comment:Sinus 11/13/2024 11/24/2024 documented as of this encounter Care Teams Trimming Caser Relationship Specialty Start Date End Date Arlette Maya MD [address] [place] [address] PCP - General Family Medicine 05/14/24 documented as of this encounter
--- OUTSIDE RECORDS SUMMARY | 2025-04-13 15:24 | XMS_ITS | Clinical Summary ---
Author Organization [facility] Address [address] [place] [address] Care Team Providers Care Crossing Flagman Name Role Phone Areltte Maya MD Primary Care Provider Allergies No known active allergies Medications DIALYVITE VITAMIN D3 MAX 1.25 MG (13215 UT) Tab Take 1 tablet by mouth [...] on file Legal Sex Female 7:52 AM AGENTS' RECORDS CLERK Gender Identity Not on file Sexual Orientation [...] A M CDT Height 162.6 cm (5' 4) 02/24/2022 9:51 AM CDT Body Mass Index 21.73 02/24/2022 9:51 AM CDT Plan of Treatment Health Maintenance Due Date Last Done Comments Colorectal Cancer Screening Colonoscopy (10 Years) 1949 Hepatitis C 1967 DTaP, Tdap and Td Vaccines (1 - Tdap) 1968 Zoster Vaccines (1 of 2) 1999 Annual Medicare Wellness Visit 2014 Dexa Scan (General) 2014 RSV Immunization or 60+ Years (1 - 1-dose 75+ series) 2024 COVID-19 Vaccine ( season) 2025 10/27/2021, 05/23/2021, 10/02/2020, Additional history exists Pneumococcal Vaccine: 50+ Years Completed 02/18/2020, 01/13/2019 Meningococcal B Vaccine Aged Out No l onger eligible based on patient's age to complete this topic Meningococcal Vaccine Aged Out No vega surekha eligible based on patient's age to complete this topic RSV Immunizations Under 20 Months Aged Out No longer eligible based on patient's age to complete this topic Insurance MEDICARE AETNA Care Teams Crossing Flagman Relationship Specialty Start Date End Date Arlette Maya MD [address] [place] [address] PCP - General FAMILY PRACTICE 11/03/21
--- OUTSIDE RECORDS SUMMARY | 2025-04-13 15:24 | XMS_ITS | Clinical Summary ---
Author Organization [facility] Main [place] Address [address] [place] [address] Care Team Providers Care Pattern Perforating Machine Operator Name Role Phone No, Physician Primary Care Provider [phone] Allergies No known active allergies Medications propranolol [...] 6:48 PM CDT Height 162.6 cm (5' 4) 03/25/2023 6:48 PM CDT Body Mass Index [...] 1999 Well Visit 65+ 2014 Covid-19 Vaccine (2024-2 6 season) 2025 05/22/2022, 10/27/2021, 05/23/2021, Additional history exists Influenza Vaccine (#1) 2025 , 06/08/2021, 05/11/2020, Additional history exists Pneumococcal vaccine 65+ Completed 02/18/2020, 12/22 Insurance MEDICARE COMMERCIAL GENERIC MEDICARE COMMERCIAL GENERIC AET Care Teams Pattern Perforating Machine Operator Relationship Specialty Start Date End Date No, Physician PCP - General 01/24/18
--- OUTSIDE RECORDS SUMMARY | 2025-04-13 15:24 | XMS_ITS | Clinical Summary ---
Author Organization [facility] Address [address] [facility] [place] [address] Care Team Providers Care Nail Galvanizer Name Role Phone Arlette Maya MD Primary Care Provider Source Comments [facility],non-owned Affiliates and Associated Physician Practices is amultiple site organization consisting of ambulatory clinics and hospital sitesin [place], [place], [place]. This disclosure is being madepursuant to the Care Everywhere program and may not contain all information available regarding this patient. Last updated 18.[employer] [facility] Allergies No known active allergies Medications * Be aware that medications may not be up to date on this document. Alwaysverify current medications with the patient. finasteride (Proscar) 5 MG tablet Take 1 (one) tablet by mouth once daily Active fluconazole (Diflucan) 150 MG tablet Take 1 (one) tablet by mouth once 4 Active fluticasone propionate (Flonase) 50 MCG/ACT nasal spray [place] 2 (two) sprays into each nostril once daily as needed 4 Active melatonin 5 MG capsule Take 1 (one) capsule by mouth at bedtime Active omeprazole (PriLOSEC) 40 MG capsule Take 1 (one) capsule by mouth once daily 4 Active propranolol ER 24hr (Inderal LA) 120 MG capsule Take 1 (one) capsule by mouth once daily 4 Active spironolactone (Aldactone) 100 MG tablet Take 1 (one) tablet by mouth once daily Active ketoconazole (Nizoral) 2 % shampoo Apply to affected area once daily 5 Active ipratropium (Atrovent) 0.06 % nasal spray USE 2 SPRAYS IN EACH NOSTRIL THREE TIMES DAILY 15 mL 5 5 Active ipratropium (Atrovent) 0.06 % nasal spray [place] 2 (two) sprays into each nostril 3 times daily 15 mL 5 5 025 Discontinued Active Problems Problem Noted Date Diagnosed Date Vasomotor rhinitis 12/24/2024 Chronic maxillary sinusitis 05/14/2024 Fungal sinusitis 05/14/2024 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 Flat. Unchanged from last visit. See Dr. Pearce in 6 months. 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 Encounters Date Type Department Care Team Description 04/10/2025 Refill [facility] - ENT [address] [place] [phone] Wood Camargo MD Refill Request from Last 3 Months Immunizations Immunization Administration [...] Sign Reading Time Taken Comments Blood Pressure 134/77 12/24/2024 1:33 PM CDT Pulse 70 12/24/2024 1:33 PM CDT Temperature - - Respiratory Rate - - Oxygen Saturation - - Inhaled Oxygen Concentration - - Weight 49 kg (108 lb) 12/24/2024 1:33 PM CDT Height 162.6 cm (5' 4) 12/24/2024 1:33 PM CDT Body Mass Index 18.54 12/24/2024 1:33 PM CDT Plan of Treatment Upcoming Encounters Date Type Department Care Team (Late st Contact Info) Description 06/24/2025 12:45 PM HYDRAULICS ENGINEER Office Visit [facility] - ENT [facility] [facility], [place] [phone] Wood Camargo MD [facility] [place] [address] Health Maintenance Due Date Last Done Comments [...] DEPRESSION SCREENING 07/23/2024 COVID-19 VACCINE ( season) 2025 05/23/2024, 05/20/2023, 05/22/2022, Additional history exists INFLUENZA VACCINE (#1) 2025 , 05/20/2023, 05/29/2022, Additional history exists PNEUMOCOCCAL VACCINE 50+ Completed 02/18/2020, 12/22 Respiratory Syncytial Virus (RSV) Vaccine Pt: or over 60 yrs Completed 06/06/2023 ZOSTER VACCINE Completed 08/08/2023, 06/06/2023 HEPATITIS B VACCINE Aged Out No longe [...] on patient's age to complete this topic Additional Health Concerns Infection Onset Date Last Indicated ESBL Hx Comment:Sinus 11/13/2024 11/24/2024 Insurance MEDICARE AETNA MEDICARE Care Teams Nail Galvanizer Relationship Specialty Start Date End Date Arlette Maya MD [facility] [facility] [address] [place] [id number] PCP - General Family Medicine 05/14/24
[2025-04-13 19:13] LABS: Alanine Aminotransferase 13 U/L (6-35); Albumin Level 4.4 g/dL (3.5-5.1); Alkaline Phosphatase 92 U/L (38-126); Anion Gap 6 mmol/L (4-12); Aspartate Amino Transferase 34 U/L (14-36); Bilirubin,Total 0.3 mg/dL (0.2-1.3); Blood Urea Nitrogen 23 mg/dL (7-17); Calcium 9.4 mg/dL (8.4-10.2); Carbon Dioxide 29 mmol/L (22-30); Chloride 98 mmol/L (98-107); Estimated Glomerular Filt Rate 43; Glucose 102 mg/dL (65-110); Potassium 5.0 mmol/L (3.4-5.0); Sodium 133 mmol/L (137-145); Total Protein 7.9 g/dL (6.3-8.2)
[2025-04-13 19:33] LABS: Hematocrit 38.7 % (37.0-47.0); Hemoglobin 12.7 g/dL (12.0-15.0); Immature Granulocyte Percent A 0.4 % (0-0.5); Lymphocytes Absolute Auto 2.24 K/mm3 (0.9-3.2); Mean Corpuscular HGB Conc 32.8 g/dl (32-36); Mean Corpuscular Hemoglobin 32.8 pg (26-34); Mean Corpuscular Volume 100.0 fl (80-100); Nucleated Red Blood Cells Absolute Auto 0.000 K/mm3 (0.0-0.012); Nucleated Red Blood Cells Perc 0.0 % (0.0-0.2); Platelet Count Result 353 k/mm3 (150-375); Red Blood Count 3.87 M/mm3 (4.2-5.4); White Blood Count 8.6 K/mm3 (4.5-10.0)
[2025-04-13 19:36] LABS: Thyroid Stimulating Hormone Reflex 2.810 uIU/mL (0.465-4.68)
== END 2025-04-13 15:18 | disposition home or self-care (01) ==
LOC: ANHGOSHLAB 15:17
PROVIDERS: PCP Nurse Practitioner Family; Visit Provider Nurse Practitioner Family
DX: E55.9 Vitamin D deficiency, unspecified (principal); R63.4 Abnormal weight loss; R05.3 Chronic cough; R19.7 Diarrhea, unspecified
CPT/HCPCS: 36415; 80053; 82306; 84443; 85025

== ENCOUNTER 2025-05-12 08:52 | Emergency (ER) | payer MEDICARE, SELFPAY ==
[2025-05-12 09:04] VITALS: BP 130/65; PULSE 66; RESP 16; TEMP 36.2; O2SAT 100
--- NOTE | 2025-05-12 09:55 | ED.URI ---
HPI - URI/Sore Throat General Chief Complaint: Upper Respiratory Infection Stated Complaint: Sinus Infection Symptoms Time Seen by Provider: 05/12/25 09:55 Source: patient, RN notes reviewed and old records reviewed Mode of arrival: ambulatory Limitations: no limitations History of Present Illness HPI Narrative: 74-year-old female presents to [facility] with a scratchy throat and a cough since Sunday, 4 days. Denies fevers, chest pain. States that she has been using her inhaler with no relief. Has been using her prescription nasal spray and Robitussin. Related Data Home Medications ?Medication ?Instructions ?Recorded ?Confirmed ?Last Taken ?Type melatonin 5 mg capsule 5 mg PO HS 03/22/20 05/12/25 05/10/23 History spironolactone 100 mg tablet 100 mg PO DIRECTED HAIR LOSS 06/23/23 05/12/25 Unknown History finasteride 5 mg tablet 5 mg PO DAILY 03/04/25 05/12/25 Unknown History ipratropium bromide 42 mcg (0.06 2 spray intranasal TID 03/04/25 05/12/25 Unknown History %) nasal spray ketoconazole 2 % shampoo 1 applic topical 2XW 03/04/25 05/11/25 Unknown History propranolol 120 mg capsule,24 120 mg PO DAILY 03/04/25 05/12/25 Unknown History hr,extended release cholecalciferol (vitamin D3) 50 50 mcg PO DAILY 04/13/25 05/12/25 Unknown History mcg (2,000 unit) chewable tablet multivitamin with minerals-folic 1 tablet PO DAILY 04/13/25 05/12/25 Unknown History acid 120 mcg chewable tablet (Adult Multivitamin Gummies) Allergies Allergy/AdvReac Type Severity Reaction Status Date / Time No Known Allergies Allergy Unknown Verified 05/12/25 09:41 Review of Systems Review of Systems: All systems reviewed & are unremarkable except as noted in HPI and below Constitutional: Constitutional: Reports no additional constitutional complaints ENT: Reports as per HPI and Reports sore throat Cardiovascular: Cardiovascular: Reports no additional cardiovascular complaints, Denies chest pain and Denies dyspnea Respiratory: Respiratory: Reports as per HPI, Denies chest congestion, Reports cough and Denies dyspnea Musculoskeletal: Musculoskeletal: Reports no additional musculoskeletal complaints Integumentary/Breasts: Skin/Breast: Reports system reviewed and no additional complaints, except as docu PMFSH Past Medical History Medical History Generalized anxiety disorder Insomnia Hip pain, bilateral Osteopenia 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 Mother No problems noted. Social History Social History Social History: Caffeine- coffee daily Smoking status: Never smoker Alcohol intake: current Drinks per week: 4 Alcohol use details: wine Substance use: never Substance use type: does not use Lack of Transportation: No Lack of Food: Never True Current Housing: I Have Housing Concerned About Future Housing: No Difficulty Paying Gas/Electric Bills: No Difficulty Paying for Meds: No Currently Unemployed: No Education: Bachelor's Degree Difficulty w/ Childcare or Family Care: No Living arrangements: with family Occupation/Education: retired Gender identity (if verbalized by the patient): Female Sexual Orientation (if Verbalized by the Patient): Straight or Heterosexual Spiritual care concerns: No Agree to blood products: Yes Comments At the time of my signature, I reviewed and agree with the nursing past medical, surgical, social, and family history. There is no relevant family history pertinent to the patient complaint. Exam Const: General: cooperative, healthy appearing, comfortable, no acute distress, well developed, alert and well nourished Nutritional Appearance: well nourished Orientation/consciousness: patient oriented x3 Limitations: no limitations HENMT: Head: normal to inspection Ears: hearing grossly normal bilaterally, external ears normal, TM's normal bilaterally, EAC's normal, mastoids normal and no periauricular adenopathy Mouth: Yes Normal oral and palatal mucosa present, Yes lip normal, Yes tongue normal and Yes moist mucous membranes Throat: posterior oropharynx normal, uvula midline, postnasal drainage and no uvular edema Eyes: General: appearance normal, both eyes and all related structures Alignment and Position: alignment normal Neck: Neck: normal visual inspection, full ROM, no lymphadenopathy and no meningeal signs Chest: Chest palpation & inspection: normal inspection of the chest Resp: Effort & Inspection: normal respiratory effort and able to speak in complete sentences Auscultation: clear to auscultation bilaterally, no crackles, no rales, no rhonchi and no wheezes Cardio: Rate: regular rate Skin: General skin exam: normal color and no rashes or lesions noted Neuro: General: patient oriented x3, gait normal, moves all extremities and no meningeal signs Cognition (Neuro): normal cognition Speech: normal speech Gait exam (Neuro): Normal gait present Extrem: General: normal to inspection, full ROM, capillary refill normal and normal gait Psych: Appearance: grossly normal and well kempt Mental Status: mental status grossly normal Speech and movement: Normal speech and movement present and Clear speech present Affect: normal affect Attitude: cooperative Course Course Level of Care: Express Care Visit Vital Signs Vital signs: Vital Signs Oxygen Delivery Room Air 05/12/25 08:55 Temperature 97.1 F L 05/12/25 09:04 Pulse Rate 66 05/12/25 09:04 Respiratory Rate 16 05/12/25 09:04 Blood Pressure 130/65 05/12/25 09:04 Pulse Oximetry 100 05/12/25 09:04 Oxygen Delivery Room Air 05/12/25 08:55 Reviewed MDM - URI/Sore Throat MDM Narrative Medical decision making narrative: Patient with a 4 day history of a scratchy throat cough, history of chronic sinusitis issues. No acute findings other than postnasal drainage noted on exam. Patient appropriate for outpatient treatment, will cover with antibiotic due to patient's age in past medical history. Patient symptoms most likely allergy with postnasal drainage. Discussed mkyj-zpu-[id number] treatment plan as well Discharge instructions reviewed with patient, as well as provided in writing per nursing staff. The instructions also include specific and strict return/GO TO THE ER as well as f/u information. All questions have been answered, and the patient deny any further questions with discharge and discharge plan. Some parts of this dictation were generated by voice recognition software and may contain typographical and/or grammatical inaccuracies. Differential Diagnosis Differential diagnosis: Likely upper respiratory infection, otitis media, sinusitis, viral infection, bronchitis, influenza and pharyngitis Critical Care Time Critical Care Time Critical Care Time: No Discharge Plan Discharge Clinical Impression: Acute bronchitis Patient Disposition: Home Condition: Stable Instructions: Antibiotic Form, Acute Bronchitis (ED), Postnasal Drip (DC) Additional Instructions: It is very important to treat your symptoms. Drink plenty of water, Gatorade, Pedialyte, ice pops or Jell-O. -Alternate Tylenol and Motrin per package directions for fever or pain. You can alternate every 4 hours -Antihistamine medication such as Zyrtec/Claritin/Elli during the day can help improve symptoms. -doing daily nasal irrigations can help relieve pressure your sinuses. Things like a Neti pot -Use Flonase twice a day for 5 days then daily to help reduce the inflammation and dry up your sinuses. -You can also use Mucinex. Be sure to drink plenty of water with this medication at least 8 ounces with every dose and it is important to drink 8 to 10 glasses of water per day. Water is a natural decongestant -Eat and drink things that are easy to swallow, like tea or soup, or popsicles. -Oral rinses such as: Salt water gargles and/or may use topical anesthetic (eg. Chloraseptic spray) or lozenges to relieve dryness or throat pain). -Frequent hand washing or hand equalizer operator is one of the best ways to prevent spread of infection. -Using a vaporizer or humidifier at night will also help thin secretions and help with coughing up phlegm. -Follow up with primary care provider in 7-10 days if condition is not improving - For new or worsening symptoms go directly to the nearest ER Patient Language: Slovak Prescriptions: New doxycycline monohydrate 100 mg tablet 100 mg PO BID Qty: 14 0RF methylprednisolone [Medrol (Thai)] 4 mg tablets,dose pack See Rx Instructions PO .COMPLEX Qty: 21 0RF Rx Instructions: orally per package directions No Action spironolactone 100 mg tablet 100 mg PO DIRECTED finasteride 5 mg tablet 5 mg PO DAILY propranolol 120 mg capsule,extended release 24 hr 120 mg PO DAILY ipratropium bromide 42 mcg (0.06 %) spray,non-aerosol 2 spray intranasal TID ketoconazole 2 % shampoo 1 applic topical 2XW melatonin 5 mg capsule 5 mg PO HS cholecalciferol (vitamin D3) 50 mcg (2,000 unit) tablet,chewable 50 mcg PO DAILY multivit with min-folic acid [Adult Multivitamin Gummies] 120 mcg tablet,chewable 1 tablet PO DAILY albuterol sulfate [Ventolin HFA] 90 mcg/actuation HFA aerosol inhaler 1 puff inhalation BID PRN (Reason: shortness of breath or wheezing) Qty: 8.5 1RF omeprazole 40 mg capsule,delayed release(DR/EC) 40 mg PO DAILY Qty: 90 1RF Follow-up/Referrals: Adria Maya MD [Primary Care Provider, Family Practice] - 2 Weeks Clinical Impression: Acute bronchitis Time of Disposition: 10:04
== END 2025-05-12 10:10 | disposition home or self-care (01) ==
PROVIDERS: Emergency Provider Nurse Practitioner; PCP Family Medicine
DX: J20.9 Acute bronchitis, unspecified (principal); Z79.899 Other long term (current) drug therapy
CPT/HCPCS: 99213; G0463

== ENCOUNTER 2025-05-12 10:14 | Outpatient (CLI) | payer MEDICARE, SELFPAY ==
--- OUTSIDE RECORDS SUMMARY | 2025-05-12 12:20 | XMS_ITS | Clinical Summary ---
Author Organization [facility] Main [place] Address [address] [place] [address] Care Team Providers Care Forex Trader Name Role Phone No, Physician Primary Care Provider [phone] Allergies No known active allergies Medications propranolol [...] GENERIC MEDICARE COMMERCIAL GENERIC AET Care Teams Forex Trader Relationship Specialty Start Date End Date No, Physician PCP - General 01/24/18
--- OUTSIDE RECORDS SUMMARY | 2025-05-12 12:20 | XMS_ITS | Encounter Summary ---
Author Organization [facility] Address [address] [place] [address] Care Team Providers Care Healthcare Educator Name Role Phone Arlette Maya MD Primary Care Provider Encounter Details Date Type Department Care Team (Late Contact Info) Description 11/14/2024 Lab Requisition [facility] - Pathology Lab [address] [place] [phone] Wood Camargo MD [address] [place] [address] [address] [place] [address] Illness, unspecified Social History Tobacco Use Types [...] (Late Contact Info) Description 06/24/2025 12:45 PM [facility] STEWARD [facility] [address] [place] [phone] Wood Camargo MD [address] [place] [address] [address] [place] [address] documented as of this encounter Procedures Procedure Name Priority Date/Time Associated Diagnosis Comments PATHOLOGY TISSUE Routine 11/13/2024 10:0 0 AM CDT Illness, unspecified documented in this encounter Results * PATHOLOGY TISSUE (11/13/2024 10:00 AM CDT) Case Report Surgical Pathology Report Case: [id number] Authorizing Provider: Wood Camargo MD Collected: 11/13/2024 10:00 AM Ordering Location: [facility] - Received: 11/14/2024 11:38 AM Pathology Lab Pathologist: Quin Dobson MD Specimen: Sinus, 1. sinus contents 11/20/2024 10:14 PM CDT [facility] Final Diagnosis Sinus contents, removal: - Fragments of sinonasal mucosa with moderate to severe chronic inflammation and eosinophilic mucin - Scant unremarkable bone fragments - GMS stain is negative for fungal organisms - Negative for malignancy 11/20/2024 10:14 PM CDT [facility] at 2214 CDT Microscopic Description and Comment No marked eosinophilic infiltrate is noted. 11/20/2024 10:14 PM CDT [facility] Clinical History The patient is a 74 year old female with history of sinus issues and persistent nasal discharges. 11/20/2024 10:14 PM CDT [facility] Gross Description The requisition and specimen(s) are identified with the patient's name, Mary Catherine. Received in formalin, specimen A, 1 sinus contents is a 5.0 x 4.5 x 1.5 cm aggregate of roberts-pink tissue fragments and red-brown clot, representatively submitted in cassette A1. -IKD The remaining specimen is submitted in cassettes [id number]./BAGo 11/20/2024 10:14 PM CDT [facility] Pathologist Location at [facility] 11/20/2024 10:14 PM CDT [facility] Disclaimer The performance characteristics of all immunohistochemical and indirect immunofluorescence stains (if any) cited in this report were determined by the Histopathology Laboratory of [facility]. Some of these tests were developed by [...] attending (teaching) pathologist. 11/20/2024 10:14 PM CDT [facility] Embedded Images 11/20/2024 10:14 PM CDT [facility] Pathology/Cytolo gy SINUS / Unknown 11/13/2024 10:00 AM CDT 11/14/2024 11:38 AM CDT Wood Camargo MD LAB - PATHOLOGY/CYTOLOGY OR DERABLES Final Result Performing Organization Address City/State/[facility] Co de Phone Number [facility] [address] [phone] documented in this encounter Visit Diagnoses Diagnosis Illness, unspecified documented in this encounter Additional Health Concerns Infection Onset Date Last Indicated Resolved Time ESBL GNR 11/13/2024 11/13/2024 11/24/2024 9:38 AM CDT [facility] Hx Comment:Sinus 11/13/2024 11/24/2024 documented as of this encounter Care Teams Healthcare Educator Relationship Specialty Start Date End Date Arlette Maya MD [address] [place] [address] PCP - General Family Medicine 05/14/24 documented as of this encounter
--- OUTSIDE RECORDS SUMMARY | 2025-05-12 12:20 | XMS_ITS | Clinical Summary ---
Author Organization [facility] [employer] Address [address] [place] [address] Care Team Providers Care Oceanography Teacher Name Role Phone Arlette Maya MD Primary Care Provider Source Comments [facility] [employer],non-owned Affiliates and Associated Physician Practices is amultiple site organization consisting of ambulatory clinics and hospital sitesin [place], [place], [place] and [place]. This disclosure is being madepursuant to the Care Everywhere program and may not contain all information available regarding this patient. Last updated 18.[employer] Allergies No known active allergies Medications * Be aware that medications may not be up to date on this document. Alwaysverify current medications with the patient. finasteride (Proscar) 5 MG tablet Take 1 (one) tablet by mouth once daily Active fluconazole (Diflucan) 150 MG tablet Take 1 (one) tablet by mouth once 02/29/2024 Active fluticasone propionate (Flonase) 50 MCG/ACT nasal spray Myra 2 (two) sprays into each nostril once [...] to affected area once daily 08/21/2024 Active ipratropium (Atrovent) 0.06 % nasal spray USE 2 SPRAYS IN EACH NOSTRIL THREE TIMES DAILY 15 mL 5 04/10/2025 Active Active Problems Problem Noted Date Diagnosed [...] Type Department Care Team Description 04/10/2025 Refill [facility] - ENT [address] [place] [phone] Wood Camargo MD Refill Request from [...] st Contact Info) Description 06/24/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
[2025-05-12 20:31] LABS: CRP 0.8 mg/dL (<1.0)
[2025-05-13 16:08] LABS: Deamidated Gliadin Abs, IgA 3 units (0-19); Deamidated Gliadin Abs, IgG 2 units (0-19); Immunoglobulin A, Qn 306 mg/dL (64-422)
== END 2025-05-12 10:15 | disposition home or self-care (01) ==
LOC: ANHGOSHLAB 10:15
PROVIDERS: PCP Family Medicine; Visit Provider Nurse Practitioner Family
DX: R63.0 Anorexia (principal); K52.9 Noninfective gastroenteritis and colitis, unspecified; R63.4 Abnormal weight loss; R10.9 Unspecified abdominal pain
CPT/HCPCS: 36415; 82784; 86140; 86231; 86258

== ENCOUNTER 2025-05-13 13:08 | Outpatient (CLI) | payer MEDICARE, SELFPAY ==
[2025-05-15 11:08] LABS: Calprotectin, Fecal 19 ug/g (0-120)
[2025-05-15 16:08] LABS: Pancreatic Elastase, Fecal 488 (>200)
== END 2025-05-13 13:09 | disposition home or self-care (01) ==
LOC: ANHLAB 13:09
PROVIDERS: PCP Family Medicine; Visit Provider Nurse Practitioner Family
DX: R63.4 Abnormal weight loss (principal); R63.0 Anorexia; Z68.1 Body mass index [BMI] 19.9 or less, adult; K52.9 Noninfective gastroenteritis and colitis, unspecified
CPT/HCPCS: 82653; 83993; 87045; 87046; 87427

== ENCOUNTER 2025-06-04 00:34 | Day surgery (SDC) | payer MEDICARE, SELFPAY ==
[2025-05-28 14:31] VITALS: BMI 18.3
[2025-06-04 10:38] VITALS: BP 131/71; PULSE 72; RESP 18; TEMP 35.8; O2SAT 100; BMI 17.6
--- NOTE | 2025-06-04 10:48 | WPDANESEPPF ---
Anes - Initial Pre Proc Eval Procedure: Operation Date: 06/04/25 11:30 Proposed Procedures p EGD & Diagnostic Colonoscopy - Alexis Putnam MD Date/Time: 06/04/25 10:48 Surgeon: Alexis Putnam MD Pre Op Diagnosis: Abnormal weight loss Patient Data Age: 75 Gender: F Height: 1.63 m Weight: 46.8 kg Last Vital Signs Temp 35.8 C L 06/04/25 10:38 Pulse 72 06/04/25 10:38 Resp 18 06/04/25 10:38 BP 131/71 06/04/25 10:38 Pulse Ox 100 06/04/25 10:38 O2 Del Method Room Air 06/04/25 10:38 Allergies Allergy/AdvReac Type Severity Reaction Status Date / Time No Known Allergies Allergy Unknown Verified 06/04/25 10:36 Home Medications ?Medication ?Instructions ?Recorded ?Confirmed ?Type melatonin 5 mg capsule 5 mg PO HS 03/22/20 06/04/25 History spironolactone 100 mg tablet 100 mg PO DIRECTED HAIR LOSS 06/23/23 06/04/25 History finasteride 5 mg tablet 5 mg PO DAILY 03/04/25 06/04/25 History ipratropium bromide 42 mcg (0.06 2 spray intranasal TID 03/04/25 06/04/25 History %) nasal spray ketoconazole 2 % shampoo 1 applic topical 2XW 03/04/25 05/28/25 History propranolol 120 mg capsule,24 120 mg PO DAILY 03/04/25 06/04/25 History hr,extended release cholecalciferol (vitamin D3) 50 50 mcg PO DAILY 04/13/25 06/04/25 History mcg (2,000 unit) chewable tablet multivitamin with minerals-folic 1 tablet PO DAILY 04/13/25 06/04/25 History acid 120 mcg chewable tablet (Adult Multivitamin Gummies) albuterol sulfate 90 mcg/actuation 1 puff inhalation BID PRN 04/22/25 05/28/25 Rx aerosol inhaler (Ventolin HFA) shortness of breath or wheezing #8.5 grams omeprazole 40 mg capsule,delayed 40 mg PO DAILY #90 caps 05/12/25 06/04/25 Rx release Patient hx anesthesia problems: none Family hx anesthesia problems: none Results Review: All pre-operative results and documents have been reviewed as part of the pre-operative evaluation. 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 Mother No problems noted. Social History Social History Social History: Caffeine- coffee daily Smoking status: Never smoker Alcohol intake: never Drinks per week: 4 Alcohol use details: wine Substance use: never Substance use type: does not use Lack of Transportation: No Lack of Food: Never True Current Housing: I Have Housing Concerned About Future Housing: No Difficulty Paying Gas/Electric Bills: No Difficulty Paying for Meds: No Currently Unemployed: No Education: Bachelor's Degree Difficulty w/ Childcare or Family Care: No Living arrangements: with family Occupation/Education: retired Gender identity (if verbalized by the patient): Female Sexual Orientation (if Verbalized by the Patient): Straight or Heterosexual Spiritual care concerns: No Agree to blood products: Yes Anes - Eval Final PreProcedure Day of Procedure 06/04/25 10:48 Patient weight: normal Heart: regular rate and rhythm Lungs: clear to auscultation and normal air movement Airway: Mallampati scale class II Neurological: alert and oriented Last oral intake: >/= 8 hours ASA classification: II Emergent: no Anesthetic plan: proceed Anesthesia type and monitoring: general GIVS and standard monitoring Results Review: All pre-operative results and documents have been reviewed as part of the pre-operative evaluation. Informed Consent: The patient's anesthetic plan and its attendant risks and benefits were discussed with the patient/family/POA. Questions were solicited and answers provided to the satisfaction of the patient/family/POA.
[2025-06-04] MEDS: LACTATED RINGERS 1,000 ML 150 ML IV CONT (10:52)
[2025-06-04] MEDS: SIMETHICONE ORAL SUSPENSION 20 MG/0.3 ML 30 ML BOTTLE 1.8 ML PO (10:56)
--- NOTE | 2025-06-04 12:18 | SUR.PREOP ---
Patient notified of delay in cases. Provided with warm blanket, offered restroom but declined at this time. Will monitor.
--- NOTE | 2025-06-04 13:03 | PM.IMHP ---
H&P: HPI History of Present Illness Date/Time: 06/04/25 13:03 Chief Complaint: Atypical GERD-diarrhea Narrative: The patient is referred for EGD and colonoscopy. She has a persistent dry cough, presumably associated with reflux, although she denies heartburn or dysphagia. In addition she has been complaining of persistent diarrhea for several months, and the colonoscopy this essentially aimed at ruling out microscopic colitis. 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 Mother No problems noted. Social History Social History Social History: Caffeine- coffee daily Smoking status: Never smoker Alcohol intake: never Drinks per week: 4 Alcohol use details: wine Substance use: never Substance use type: does not use Lack of Transportation: No Lack of Food: Never True Current Housing: I Have Housing Concerned About Future Housing: No Difficulty Paying Gas/Electric Bills: No Difficulty Paying for Meds: No Currently Unemployed: No Education: Bachelor's Degree Difficulty w/ Childcare or Family Care: No Living arrangements: with family Occupation/Education: retired Gender identity (if verbalized by the patient): Female Sexual Orientation (if Verbalized by the Patient): Straight or Heterosexual Spiritual care concerns: No Agree to blood products: Yes Meds Home Medications and Allergies Home Medications ?Medication ?Instructions ?Recorded ?Confirmed ?Type melatonin 5 mg capsule 5 mg PO HS 03/22/20 06/04/25 History spironolactone 100 mg tablet 100 mg PO DIRECTED HAIR LOSS 06/23/23 06/04/25 History finasteride 5 mg tablet 5 mg PO DAILY 03/04/25 06/04/25 History ipratropium bromide 42 mcg (0.06 2 spray intranasal TID 03/04/25 06/04/25 History %) nasal spray ketoconazole 2 % shampoo 1 applic topical 2XW 03/04/25 05/28/25 History propranolol 120 mg capsule,24 120 mg PO DAILY 03/04/25 06/04/25 History hr,extended release cholecalciferol (vitamin D3) 50 50 mcg PO DAILY 04/13/25 06/04/25 History mcg (2,000 unit) chewable tablet multivitamin with minerals-folic 1 tablet PO DAILY 04/13/25 06/04/25 History acid 120 mcg chewable tablet (Adult Multivitamin Gummies) albuterol sulfate 90 mcg/actuation 1 puff inhalation BID PRN 04/22/25 05/28/25 Rx aerosol inhaler (Ventolin HFA) shortness of breath or wheezing #8.5 grams omeprazole 40 mg capsule,delayed 40 mg PO DAILY #90 caps 05/12/25 06/04/25 Rx release Allergies Allergy/AdvReac Type Severity Reaction Status Date / Time No Known Allergies Allergy Unknown Verified 06/04/25 10:36 Vital Signs Vital Signs - 24 hr 06/04/25 10:38 Temperature 96.5 F L Pulse Rate 72 Respiratory Rate 18 Blood Pressure 131/71 Pulse Oximetry 100 Oxygen Delivery Room Air Exam Const: General: cooperative and healthy appearing Resp: Effort & Inspection: normal respiratory effort and able to speak in complete sentences Auscultation: clear to auscultation bilaterally Cardio: Rate: regular rate Rhythm: regular rhythm GI: Inspection: normal to inspection GI Palp: No No hepatosplenomegaly present Auscultation: normal bowel sounds Rectal Exam: deferred Skin: General skin exam: normal color Psych: Appearance: grossly normal Mental Status: mental status grossly normal Assessment and Plan Assessment and plan (1) Gastroesophageal reflux disease: Qualifiers: Esophagitis presence: esophagitis presence not specified Qualified Code(s): K21.9 - Gastro-esophageal reflux disease without esophagitis Code(s): K21.9 - Gastro-esophageal reflux disease without esophagitis Status: Acute (2) Chronic diarrhea: Code(s): K52.9 - Noninfective gastroenteritis and colitis, unspecified Status: Acute
--- NOTE | 2025-06-04 13:19 | S_PTH ---
PATIENT: Mary Catherine LOC: [facility] Sarabia#:[id number] AGE/SX: 75/F ROOM: RE06/04/[address]: Alexis Putnam MD : 1950 BED: DIS: 06/04/2025 SPEC #: [id number] RECD: 06/04/25 14:22 STATUS: GABBI RE #: [id number] MARGO: 06/04/25 13:[address]: Alexis Putnam DEPT: [facility] Surgical RECD BY: Mary Gaytan ENTERED: 06/04/25 14:22 SP TYPE: Surgical OTHR DR: Arlette Maya MD Tissues: A - Gastric Biopsy B - Gastric Biopsy C - Colon Polypectomy D - Colon Biopsy E - Colon Biopsy Procedures: Hematoxylin and Eosin Stain Gross and Microscopic Level 4
--- NOTE | 2025-06-04 13:39 | SUR.OPER ---
EGD stop time 1313; Colonoscopy start time 1318
[2025-06-04 13:41] VITALS: BP 118/72; PULSE 74; RESP 26; O2SAT 99
[2025-06-04 13:51] VITALS: BP 112/71; PULSE 66; RESP 20; O2SAT 100
[2025-06-04 14:01] VITALS: BP 124/65; PULSE 68; RESP 19; O2SAT 100
== END 2025-06-04 14:21 | disposition home or self-care (01) ==
PROVIDERS: PCP Family Medicine; Referring Provider Nurse Practitioner Family; Visit Provider Internal Medicine Gastroenterology
PROC: 0DJ08ZZ Inspection of Upper Intestinal Tract, Via Natural or Artificial Opening Endoscopic (ICD-10-PCS; CPT 45378; principal; 2025-06-04 11:30)
DX: K21.9 Gastro-esophageal reflux disease without esophagitis (principal); K29.70 Gastritis, unspecified, without bleeding; K31.89 Other diseases of stomach and duodenum; K63.5 Polyp of colon; K64.8 Other hemorrhoids; K57.30 Diverticulosis of large intestine without perforation or abscess without bleeding; F41.9 Anxiety disorder, unspecified; G47.00 Insomnia, unspecified; G25.0 Essential tremor; M85.88 Other specified disorders of bone density and structure, other site; Z79.51 Long term (current) use of inhaled steroids; Z98.890 Other specified postprocedural states; Z98.51 Tubal ligation status; Z82.49 Family history of ischemic heart disease and other diseases of the circulatory system
CPT/HCPCS: 43239; 45380; 45385; 88305; J2003; J2704; J7120